=== PATIENT | female | born 1955 | race Caucasian/White ===

== ENCOUNTER → 2017-10-01 14:01 | Outpatient (CLI) | payer BC, SELFPAY | PROVIDERS: Family Provider Family Medicine; PCP Family Medicine; Visit Provider Family Medicine | DX: I49.3 Ventricular premature depolarization (principal); R00.2 Palpitations | CPT/HCPCS: 93225; 93226 ==

== ENCOUNTER → 2020-06-02 15:35 | Outpatient (CLI) | payer MEDICARE, SELFPAY ==
[2019-06-05 15:03] VITALS: BMI 39.7
--- NOTE | 2020-06-02 15:42 | BI_ITS ---
MAMMOGRAPHY - BILATERAL SCREENING REASON FOR EXAM: Female, 64 years old. Routine annual screening examination. PERTINENT HISTORY: NO FAM HX GAINED 20+# NO SX LTD ROM ON NECK-RAISINF CHIN OUT OF PICTURE AND LTD SHOULDER MVMT TECHNIQUE: Digital bilateral breast maggie (3D mammographic acquisition) in the CC and MLO projections. 2-D mediolateral oblique (MLO) and craniocaudad (CC) views of both breasts were obtained. CAD: Full Field Digital Mammography with Computer Added Detection was performed. COMPARISON: 05/03/2015. FINDINGS: Breast Composition: The breasts are almost entirely fatty. There are no dominant masses or suspicious calcifications. No other significant abnormalities are identified. BI/SCREEN MAMM (CAD) W/MAGGIE BILAT IMPRESSION: Stable bilateral screening mammogram. Yearly follow-up mammogram recommended. (A) ASSESSMENT CATEGORY: BIRADS Category 2: Benign. A letter regarding these results will be sent to the patient by the facility within 30 days. Approximately 10% of breast cancers are not detected by mammography. A normal mammogram should not delay biopsy of a clinically suspicious abnormality. [id number] Electronically Signed: Babar Park, at 16:24 EST Tel , Service support ,
== END ==
PROVIDERS: PCP Family Medicine; Referring Provider Family Medicine; Visit Provider Family Medicine
DX: Z12.31 Encounter for screening mammogram for malignant neoplasm of breast (principal)
CPT/HCPCS: 77063; 77067

== ENCOUNTER → 2021-03-17 08:44 | Outpatient (CLI) | payer MEDICARE, OTHER, SELFPAY ==
[2021-03-17 10:10] LABS: AST(SGOT) 18 U/L (15-37); Alanine Aminotransfer ALT/SGPT 27 U/L (13-56); Albumin, Serum 3.4 g/dL (3.2-5.0); Alkaline Phosphatase 89 U/L (45-117); Anion Gap 5 (5-15); BUN 23 mg/dL (7-18); BUN/Creat Ratio 32.1 RATIO (10-20); Bilirubin, Direct 0.06 mg/dL (0.00-0.30); Calcium,Total 9.2 mg/dL (8.5-10.1); Chloride 108 mmol/L (98-107); Cholesterol 233 mg/dL (200); Creatinine, Serum 0.72 mg/dL (0.55-1.02); EST Glomerular Filtration Rate 87 mL/min (>60); Est Glom Filt Rate - Afr Amer 105 mL/min (>60); Globulin 4.3 g/dL (2.2-4.2); Glucose 108 mg/dL (74-106); High Density Lipoprotein 37 mg/dL; Magnesium 2.3 mg/dL (1.6-2.6); Potassium 4.6 mmol/L (3.5-5.1); Protein, Total 7.7 g/dL (6.4-8.2); Sodium Level 139 mmol/L (136-145); Thyroid Stim Hormone (TSH) 1.08 uIU/mL (0.358-3.74); Triglycerides 353 mg/dL; Very Low Density Lipoprotein 71 mg/dL (5-40)
== END ==
PROVIDERS: PCP Family Medicine; Referring Provider Nurse Practitioner Gerontology; Visit Provider Nurse Practitioner Gerontology
DX: I10 Essential (primary) hypertension (principal); E78.2 Mixed hyperlipidemia; R00.2 Palpitations
CPT/HCPCS: 36415; 80048; 80061; 80076; 83735; 84443

== ENCOUNTER → 2022-03-10 | Outpatient (CLI) | payer MEDICARE, OTHER, SELFPAY ==
[2022-03-10 12:16] LABS: Absolute Neutrophil Count 4.3 X10^3/uL (2.0-7.7); Basophil# 0.04 X10^3/uL; Basophil% 0.6 % (0-1); Eosinophil# 0.16 X10^3/uL; Eosinophils% 2.5 % (0-5); Erythrocyte Sedimentation Rate 19 mm/hr (0-30); Hematocrit 42.5 % (37-47); Hemoglobin 13.9 g/dL (12.0-15.0); Mean Corp Hgb Conc 32.7 g/dL (32-36); Mean Corpuscular Volume 94.7 fL (81-99); Mean Platelet Vol. 9.1 fl (6.2-12.0); Monocyte# 0.67 X10^3/uL; Monocyte% 10.3 % (0-10); NRBC Flagged by Analyzer 0 % (0-5); Neutrophil # 4.32 X10^3/uL (2.7-7.7); Neutrophil % 66.4 % (47-70); Platelet Count 315 K/mm3 (150-450); RBC Distribution Width CV 13.2 % (11.6-14.6); RBC Distribution Width SD 46.3 fl (35.1-43.9); Red Blood Count 4.49 M/mm3 (4.2-5.4); White Blood Count 6.5 K/mm3 (4.4-11.0)
[2022-03-10 12:34] LABS: ALB/GLOB Ratio 0.8 RATIO (0.9-2.4); AST(SGOT) 26 U/L (15-37); Alanine Aminotransfer ALT/SGPT 38 U/L (13-56); Albumin, Serum 3.5 g/dL (3.2-5.0); Alkaline Phosphatase 105 U/L (45-117); Anion Gap 7 (5-15); BUN 26 mg/dL (7-18); BUN/Creat Ratio 26.1 RATIO (10-20); Calcium,Total 9.5 mg/dL (8.5-10.1); Chloride 108 mmol/L (98-107); EST Glomerular Filtration Rate 59 mL/min (>60); Est Glom Filt Rate - Afr Amer 71 mL/min (>60); Globulin 4.5 g/dL (2.2-4.2); Glucose 94 mg/dL (74-106); Potassium 4.5 mmol/L (3.5-5.1); Sodium Level 140 mmol/L (136-145)
[2022-03-10 13:14] LABS: Hepatitis B Surface Antibody Non-Reactive; Hepatitis B Surface Antigen Non-Reactive (Nonreactive); Hepatitis C Antibody Non-Reactive (Nonreactive)
[2022-03-12 11:26] LABS: ANTINUCLEAR ANTIBODIES DIRECT Negative (Negative)
[2022-03-14 10:47] LABS: CCP IgG Antibodies > 250 units (0-19)
== END | disposition home or self-care (01) ==
LOC: MTLAB 09:58
PROVIDERS: PCP Family Medicine; Referring Provider Internal Medicine Rheumatology; Visit Provider Internal Medicine Rheumatology
DX: M06.4 Inflammatory polyarthropathy (principal); I10 Essential (primary) hypertension; R51.9 Headache, unspecified; R00.2 Palpitations; I47.29 Other ventricular tachycardia; E78.5 Hyperlipidemia, unspecified
CPT/HCPCS: 36415; 80053; 85025; 85652; 86038; 86140; 86200; 86431; 86706; 86803; 87340

== ENCOUNTER → 2022-04-25 | Outpatient (CLI) | payer MEDICARE, OTHER, SELFPAY ==
[2022-04-25 15:27] LABS: Absolute Lymphocyte Count 1.13 X10^3/uL (0.83-4.51); Basophil# 0.03 X10^3/uL; Basophil% 0.3 % (0-1); Eosinophil# 0.03 X10^3/uL; Eosinophils% 0.3 % (0-5); Hematocrit 42.6 % (37-47); Hemoglobin 13.9 g/dL (12.0-15.0); Lymphocyte # 1.13 X10^3/ul (0.83-4.51); Mean Corp Hgb Conc 32.6 g/dL (32-36); Mean Corpuscular Hgb 30.2 pg (27.0-32.0); Mean Corpuscular Volume 92.4 fL (81-99); Mean Platelet Vol. 8.7 fl (6.2-12.0); Monocyte# 0.46 X10^3/uL; Monocyte% 5.3 % (0-10); NRBC Flagged by Analyzer 0 % (0-5); Neutrophil # 6.99 X10^3/uL (2.7-7.7); Neutrophil % 80.6 % (47-70); Platelet Count 350 K/mm3 (150-450); RBC Distribution Width CV 14.1 % (11.6-14.6); RBC Distribution Width SD 47.5 fl (35.1-43.9); Red Blood Count 4.61 M/mm3 (4.2-5.4); White Blood Count 8.7 K/mm3 (4.4-11.0)
[2022-04-25 15:50] LABS: ALB/GLOB Ratio 0.9 RATIO (0.9-2.4); AST(SGOT) 13 U/L (15-37); Alanine Aminotransfer ALT/SGPT 43 U/L (13-56); Albumin, Serum 3.6 g/dL (3.2-5.0); Alkaline Phosphatase 69 U/L (45-117); Anion Gap 9 (5-15); BUN 28 mg/dL (7-18); BUN/Creat Ratio 34.7 RATIO (10-20); Calcium,Total 9.9 mg/dL (8.5-10.1); Chloride 106 mmol/L (98-107); Creatinine, Serum 0.81 mg/dL (0.55-1.02); EST Glomerular Filtration Rate 75 mL/min (>60); Est Glom Filt Rate - Afr Amer 91 mL/min (>60); Globulin 4.1 g/dL (2.2-4.2); Glucose 118 mg/dL (74-106); Potassium 4.8 mmol/L (3.5-5.1); Protein, Total 7.7 g/dL (6.4-8.2); Sodium Level 138 mmol/L (136-145)
== END | disposition home or self-care (01) ==
LOC: MTLAB 13:25
PROVIDERS: PCP Family Medicine; Referring Provider Internal Medicine Rheumatology; Visit Provider Internal Medicine Rheumatology
DX: M06.4 Inflammatory polyarthropathy (principal); Z79.899 Other long term (current) drug therapy
CPT/HCPCS: 36415; 80053; 85025

== ENCOUNTER → 2022-05-15 | Outpatient (CLI) | payer MEDICARE, OTHER, SELFPAY ==
--- NOTE | 2022-05-15 13:21 | BI_ITS ---
MAMMOGRAPHY - BILATERAL SCREENING REASON FOR EXAM: Female, 66 years old. Routine annual screening examination. PERTINENT HISTORY: Non-contributory. TECHNIQUE: Digital bilateral breast maggie (3D mammographic acquisition) in the CC and MLO projections. 2-D mediolateral oblique (MLO) and craniocaudad (CC) views of both breasts were obtained. CAD: Full Field Digital Mammography with Computer Added Detection was performed. COMPARISON: Comparison is made with prior study dated 06/02/2020 and 05/03/2015. FINDINGS: Breast Composition: The breasts are almost entirely fatty. There are no dominant masses or suspicious calcifications. No other significant abnormalities are identified. There has been no significant change since the prior study. BI/SCRN MAMM (CAD)W/MAGGIE BILAT IMPRESSION: Stable bilateral screening mammogram. Yearly follow-up mammogram recommended. (A) ASSESSMENT CATEGORY: BIRADS Category 1: Negative. A letter regarding these results will be sent to the patient by the facility within 30 days. Approximately 10% of breast cancers are not detected by mammography. A normal mammogram should not delay biopsy of a clinically suspicious abnormality. [id number] Electronically Signed: Bismark Marquez MD at 14:22 EST ,
== END | disposition home or self-care (01) ==
LOC: OPBI 13:20
PROVIDERS: PCP Family Medicine; Referring Provider Nurse Practitioner Family; Visit Provider Nurse Practitioner Family
DX: Z12.31 Encounter for screening mammogram for malignant neoplasm of breast (principal)
CPT/HCPCS: 77063; 77067

== ENCOUNTER → 2022-06-27 | Outpatient (CLI) | payer MEDICARE, OTHER, SELFPAY ==
[2022-06-27 15:28] LABS: Absolute Neutrophil Count 6.1 X10^3/uL (2.0-7.7); Basophil# 0.05 X10^3/uL; Basophil% 0.6 % (0-1); Eosinophil# 0.16 X10^3/uL; Eosinophils% 1.9 % (0-5); Hematocrit 42.6 % (37-47); Hemoglobin 13.4 g/dL (12.0-15.0); Lymphocyte % 16.2 % (19-41); Mean Corp Hgb Conc 31.5 g/dL (32-36); Mean Corpuscular Hgb 30.7 pg (27.0-32.0); Mean Corpuscular Volume 97.5 fL (81-99); Mean Platelet Vol. 8.9 fl (6.2-12.0); Monocyte# 0.74 X10^3/uL; Monocyte% 8.6 % (0-10); NRBC Flagged by Analyzer 0 % (0-5); Neutrophil # 6.12 X10^3/uL (2.7-7.7); Platelet Count 364 K/mm3 (150-450); RBC Distribution Width SD 57.4 fl (35.1-43.9); Red Blood Count 4.37 M/mm3 (4.2-5.4); White Blood Count 8.6 K/mm3 (4.4-11.0)
[2022-06-27 15:40] LABS: ALB/GLOB Ratio 0.9 RATIO (0.9-2.4); AST(SGOT) 22 U/L (15-37); Alanine Aminotransfer ALT/SGPT 38 U/L (13-56); Albumin, Serum 3.8 g/dL (3.2-5.0); Alkaline Phosphatase 76 U/L (45-117); Anion Gap 7 (5-15); BUN 25 mg/dL (7-18); Calcium,Total 9.5 mg/dL (8.5-10.1); Chloride 106 mmol/L (98-107); Creatinine, Serum 0.76 mg/dL (0.55-1.02); EST Glomerular Filtration Rate 81 mL/min (>60); Est Glom Filt Rate - Afr Amer 98 mL/min (>60); Globulin 4.1 g/dL (2.2-4.2); Glucose 103 mg/dL (74-106); Potassium 4.5 mmol/L (3.5-5.1); Protein, Total 7.9 g/dL (6.4-8.2); Sodium Level 139 mmol/L (136-145)
== END | disposition home or self-care (01) ==
LOC: MTLAB 13:33
PROVIDERS: PCP Family Medicine; Referring Provider Internal Medicine Rheumatology; Visit Provider Internal Medicine Rheumatology
DX: M05.79 Rheumatoid arthritis with rheumatoid factor of multiple sites without organ or systems involvement (principal); Z79.899 Other long term (current) drug therapy
CPT/HCPCS: 36415; 80053; 85025

== ENCOUNTER → 2022-08-17 | Outpatient (CLI) | payer MEDICARE, OTHER, SELFPAY ==
[2022-08-17 12:20] LABS: Absolute Lymphocyte Count 1.44 X10^3/uL (0.83-4.51); Absolute Neutrophil Count 2.9 X10^3/uL (2.0-7.7); Basophil# 0.04 X10^3/uL; Basophil% 0.8 % (0-1); Eosinophil# 0.12 X10^3/uL; Eosinophils% 2.3 % (0-5); Hematocrit 40.2 % (37-47); Hemoglobin 12.9 g/dL (12.0-15.0); Lymphocyte # 1.44 X10^3/ul (0.83-4.51); Lymphocyte % 27.5 % (19-41); Mean Corp Hgb Conc 32.1 g/dL (32-36); Mean Corpuscular Hgb 32.5 pg (27.0-32.0); Mean Corpuscular Volume 101.3 fL (81-99); Monocyte# 0.71 X10^3/uL; Monocyte% 13.6 % (0-10); NRBC Flagged by Analyzer 0 % (0-5); Neutrophil % 55.4 % (47-70); Platelet Count 295 K/mm3 (150-450); RBC Distribution Width CV 14.3 % (11.6-14.6); RBC Distribution Width SD 52.9 fl (35.1-43.9); Red Blood Count 3.97 M/mm3 (4.2-5.4); White Blood Count 5.2 K/mm3 (4.4-11.0)
[2022-08-17 12:48] LABS: ALB/GLOB Ratio 0.8 RATIO (0.9-2.4); AST(SGOT) 20 U/L (15-37); Alanine Aminotransfer ALT/SGPT 37 U/L (13-56); Albumin, Serum 3.4 g/dL (3.2-5.0); Alkaline Phosphatase 70 U/L (45-117); Anion Gap 10 (5-15); BUN 21 mg/dL (7-18); BUN/Creat Ratio 23.4 RATIO (10-20); Calcium,Total 9.5 mg/dL (8.5-10.1); Chloride 107 mmol/L (98-107); EST Glomerular Filtration Rate 67 mL/min (>60); Est Glom Filt Rate - Afr Amer 80 mL/min (>60); Glucose 93 mg/dL (74-106); Potassium 3.9 mmol/L (3.5-5.1); Protein, Total 7.4 g/dL (6.4-8.2); Sodium Level 141 mmol/L (136-145)
== END | disposition home or self-care (01) ==
LOC: MTLAB 09:33
PROVIDERS: PCP Family Medicine; Referring Provider Internal Medicine Rheumatology; Visit Provider Internal Medicine Rheumatology
DX: M05.79 Rheumatoid arthritis with rheumatoid factor of multiple sites without organ or systems involvement (principal); Z79.899 Other long term (current) drug therapy
CPT/HCPCS: 36415; 80053; 85025

== ENCOUNTER → 2022-10-19 | Outpatient (CLI) | payer MEDICARE, OTHER, SELFPAY ==
[2022-10-19 12:46] LABS: Absolute Lymphocyte Count 1.09 X10^3/uL (0.83-4.51); Absolute Neutrophil Count 3.2 X10^3/uL (2.0-7.7); Basophil# 0.02 X10^3/uL; Basophil% 0.4 % (0-1); Eosinophil# 0.15 X10^3/uL; Eosinophils% 2.9 % (0-5); Hematocrit 40.9 % (37-47); Lymphocyte # 1.09 X10^3/ul (0.83-4.51); Lymphocyte % 20.9 % (19-41); Mean Corp Hgb Conc 31.8 g/dL (32-36); Mean Corpuscular Hgb 31.6 pg (27.0-32.0); Mean Corpuscular Volume 99.5 fL (81-99); Mean Platelet Vol. 9.4 fl (6.2-12.0); Monocyte% 13.4 % (0-10); NRBC Flagged by Analyzer 0 % (0-5); Neutrophil # 3.24 X10^3/uL (2.7-7.7); Platelet Count 297 K/mm3 (150-450); RBC Distribution Width CV 14.1 % (11.6-14.6); RBC Distribution Width SD 50.9 fl (35.1-43.9); Red Blood Count 4.11 M/mm3 (4.2-5.4); White Blood Count 5.2 K/mm3 (4.4-11.0)
[2022-10-19 12:49] LABS: ALB/GLOB Ratio 0.8 RATIO (0.9-2.4); AST(SGOT) 16 U/L (15-37); Alanine Aminotransfer ALT/SGPT 35 U/L (13-56); Albumin, Serum 3.2 g/dL (3.2-5.0); Alkaline Phosphatase 76 U/L (45-117); Anion Gap 8 (5-15); BUN 24 mg/dL (7-18); BUN/Creat Ratio 33.2 RATIO (10-20); Bilirubin, Direct < 0.05 mg/dL (0.00-0.30); Calcium,Total 9.3 mg/dL (8.5-10.1); Chloride 107 mmol/L (98-107); Cholesterol 235 mg/dL (200); Creatinine, Serum 0.72 mg/dL (0.55-1.02); EST Glomerular Filtration Rate 85 mL/min (>60); Est Glom Filt Rate - Afr Amer 103 mL/min (>60); Globulin 4.1 g/dL (2.2-4.2); Glucose 130 mg/dL (74-106); High Density Lipoprotein 37 mg/dL; Potassium 4.1 mmol/L (3.5-5.1); Protein, Total 7.3 g/dL (6.4-8.2); Sodium Level 139 mmol/L (136-145); Triglycerides 543 mg/dL
== END | disposition home or self-care (01) ==
LOC: MTLAB 10:17
PROVIDERS: PCP Family Medicine; Referring Provider Physician Assistant Medical; Visit Provider Physician Assistant Medical
DX: M05.79 Rheumatoid arthritis with rheumatoid factor of multiple sites without organ or systems involvement (principal); I10 Essential (primary) hypertension; E78.2 Mixed hyperlipidemia; Z79.899 Other long term (current) drug therapy
CPT/HCPCS: 36415; 80053; 80061; 82248; 85025

== ENCOUNTER → 2022-12-14 | Outpatient (CLI) | payer MEDICARE, OTHER, SELFPAY ==
[2022-12-14 15:24] LABS: Absolute Lymphocyte Count 2.04 X10^3/uL (0.83-4.51); Absolute Neutrophil Count 4.5 X10^3/uL (2.0-7.7); Basophil# 0.05 X10^3/uL; Basophil% 0.6 % (0-1); Eosinophil# 0.18 X10^3/uL; Eosinophils% 2.3 % (0-5); Hematocrit 39.4 % (37-47); Hemoglobin 12.4 g/dL (12.0-15.0); Lymphocyte # 2.04 X10^3/ul (0.83-4.51); Lymphocyte % 26.3 % (19-41); Mean Corp Hgb Conc 31.5 g/dL (32-36); Mean Corpuscular Hgb 31.4 pg (27.0-32.0); Mean Corpuscular Volume 99.7 fL (81-99); Mean Platelet Vol. 9.2 fl (6.2-12.0); Monocyte# 0.92 X10^3/uL; Monocyte% 11.9 % (0-10); NRBC Flagged by Analyzer 0 % (0-5); Neutrophil % 58.1 % (47-70); Platelet Count 376 K/mm3 (150-450); RBC Distribution Width SD 55.8 fl (35.1-43.9); Red Blood Count 3.95 M/mm3 (4.2-5.4); White Blood Count 7.8 K/mm3 (4.4-11.0)
[2022-12-14 15:58] LABS: ALB/GLOB Ratio 0.8 RATIO (0.9-2.4); AST(SGOT) 19 U/L (15-37); Alanine Aminotransfer ALT/SGPT 35 U/L (13-56); Albumin, Serum 3.3 g/dL (3.2-5.0); Alkaline Phosphatase 89 U/L (45-117); Anion Gap 8 (5-15); BUN 29 mg/dL (7-18); BUN/Creat Ratio 32.4 RATIO (10-20); Calcium,Total 9.7 mg/dL (8.5-10.1); Chloride 107 mmol/L (98-107); Creatinine, Serum 0.89 mg/dL (0.55-1.02); EST Glomerular Filtration Rate 67 mL/min (>60); Est Glom Filt Rate - Afr Amer 81 mL/min (>60); Globulin 4.2 g/dL (2.2-4.2); Glucose 84 mg/dL (74-106); Potassium 4.3 mmol/L (3.5-5.1); Protein, Total 7.5 g/dL (6.4-8.2); Sodium Level 140 mmol/L (136-145)
== END | disposition home or self-care (01) ==
LOC: LAB 13:45
PROVIDERS: PCP Family Medicine; Visit Provider Internal Medicine Rheumatology
DX: M05.79 Rheumatoid arthritis with rheumatoid factor of multiple sites without organ or systems involvement (principal); Z79.899 Other long term (current) drug therapy
CPT/HCPCS: 36415; 80053; 85025

== ENCOUNTER → 2023-03-16 | Outpatient (CLI) | payer MEDICARE, OTHER, SELFPAY ==
[2023-03-16 12:18] LABS: Absolute Lymphocyte Count 1.39 X10^3/uL (0.83-4.51); Absolute Neutrophil Count 4.4 X10^3/uL (2.0-7.7); Basophil# 0.03 X10^3/uL; Basophil% 0.4 % (0-1); Eosinophil# 0.18 X10^3/uL; Eosinophils% 2.6 % (0-5); Hematocrit 40.7 % (37-47); Hemoglobin 12.6 g/dL (12.0-15.0); Lymphocyte # 1.39 X10^3/ul (0.83-4.51); Lymphocyte % 20.4 % (19-41); Mean Corpuscular Hgb 31.4 pg (27.0-32.0); Mean Corpuscular Volume 101.5 fL (81-99); Mean Platelet Vol. 9.4 fl (6.2-12.0); Monocyte# 0.78 X10^3/uL; Monocyte% 11.4 % (0-10); NRBC Flagged by Analyzer 0 % (0-5); Neutrophil # 4.42 X10^3/uL (2.7-7.7); Neutrophil % 64.9 % (47-70); Platelet Count 253 K/mm3 (150-450); RBC Distribution Width CV 14.8 % (11.6-14.6); RBC Distribution Width SD 55.4 fl (35.1-43.9); Red Blood Count 4.01 M/mm3 (4.2-5.4); White Blood Count 6.8 K/mm3 (4.4-11.0)
[2023-03-16 12:45] LABS: ALB/GLOB Ratio 0.9 RATIO (0.9-2.4); AST(SGOT) 14 U/L (15-37); Alanine Aminotransfer ALT/SGPT 43 U/L (13-56); Albumin, Serum 3.3 g/dL (3.2-5.0); Alkaline Phosphatase 71 U/L (45-117); Anion Gap 9 (5-15); BUN 18 mg/dL (7-18); BUN/Creat Ratio 26.3 RATIO (10-20); Calcium,Total 9.1 mg/dL (8.5-10.1); Chloride 109 mmol/L (98-107); Creatinine, Serum 0.68 mg/dL (0.55-1.02); EST Glomerular Filtration Rate 91 mL/min (>60); Est Glom Filt Rate - Afr Amer 110 mL/min (>60); Globulin 3.8 g/dL (2.2-4.2); Glucose 113 mg/dL (74-106); Potassium 4.2 mmol/L (3.5-5.1); Protein, Total 7.1 g/dL (6.4-8.2); Sodium Level 142 mmol/L (136-145)
== END | disposition home or self-care (01) ==
LOC: MTLAB 09:49
PROVIDERS: PCP Family Medicine; Referring Provider Internal Medicine Rheumatology; Visit Provider Internal Medicine Rheumatology
DX: M05.742 Rheumatoid arthritis with rheumatoid factor of left hand without organ or systems involvement (principal); I10 Essential (primary) hypertension; R51.9 Headache, unspecified; Z79.899 Other long term (current) drug therapy
CPT/HCPCS: 36415; 80053; 85025

== ENCOUNTER → 2023-05-17 | Outpatient (CLI) | payer MEDICARE, OTHER, SELFPAY ==
--- NOTE | 2023-05-17 13:29 | BI_ITS ---
MAMMOGRAPHY - BILATERAL SCREENING REASON FOR EXAM: Female, 67 years old. Routine annual screening examination. PERTINENT HISTORY: Non-contributory. TECHNIQUE: Digital bilateral breast maggie (3D mammographic acquisition) in the CC and MLO projections. 2-D mediolateral oblique (MLO) and craniocaudad (CC) views of both breasts were obtained. CAD: Full Field Digital Mammography with Computer Added Detection was performed. COMPARISON: Comparison is made with prior study dated May 15, 2022 and June 02, 2020. FINDINGS: Breast Composition: The breasts are almost entirely fatty. There are no dominant masses or suspicious calcifications. Stable scattered calcifications in right breast. No other significant abnormalities are identified. There has been no significant change since the prior study. BI/SCRN MAMM (CAD)W/MAGGIE BILAT IMPRESSION: Stable bilateral screening mammogram. Yearly follow-up mammogram recommended. (A) ASSESSMENT CATEGORY: BIRADS Category 2: Benign. A letter regarding these results will be sent to the patient by the facility within 30 days. Approximately 10% of breast cancers are not detected by mammography. A normal mammogram should not delay biopsy of a clinically suspicious abnormality. [id number] Electronically Signed: Bismark Marquez MD at 14:30 EST ,
== END | disposition home or self-care (01) ==
LOC: OPBI 13:28
PROVIDERS: PCP Family Medicine; Referring Provider Nurse Practitioner Family; Visit Provider Nurse Practitioner Family
DX: Z12.31 Encounter for screening mammogram for malignant neoplasm of breast (principal)
CPT/HCPCS: 77063; 77067

== ENCOUNTER → 2023-06-11 | Outpatient (CLI) | payer MEDICARE, OTHER, SELFPAY ==
--- OUTSIDE RECORDS SUMMARY | 2023-06-11 10:36 | XMS RPT_ITS | CCD ---
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 Name Role Phone Jarvis Egan MD Primary Care Provider [phone] JARVIS EGAN Primary Care Unavailable FATMATA LARA Referring Unavailable MARIO GARCIA Attending Unavailable JARVIS EGAN Primary Care Unavailable FATMATA LARA Attending Unavailable JARVIS EGAN Primary Care Unavailable FATMATA LARA Attending Unavailable JARVIS EGAN Primary Care Unavailable FATMATA LARA Referring Unavailable JARVIS EGAN Primary Care Unavailable JARVIS EGAN Primary Care Unavailable BRAYAN, MARIO P Referring Unavailable BRAYAN MARIO P Attending Unavailable JARVIS EGAN Primary Care Unavailable BRAYAN, MARIO P Referring Unavailable BRAYAN, MARIO P Attending Unavailable Allergies Allergy Classification Reported Allergen(s) Allergy Type Date of Onset Reaction(s) Facility (14 sources) environmental [Other] Propensity to adverse reactions 9 [facility] (9 sources) Hydroxychloroquin e; Translations: [HYDROXYCHLOROQUI NE] Drug Allergy 3 Rash [facility] (1 source) OTHER; Translations: [OTHER] Propensity to adverse reactions (disorder) 9 [facility] Repository Medications Current Medications Medication Drug Class(es) Dates Sig (Normalized) Sig (Original) phentermine hydrochloride 37.5 mg oral tablet (4 sources) Sympathomimetic Amine Anorectic Start: 01-23-2022 End: 02-22-2022 take 1 tablet by mouth once daily Phentermine HCl 37.5 mg tablet Indications: Obesity, Class III, BMI 40-49.9 (morbid obesity) (HCC) Take 1 tablet by mouth once daily for 30 days. 30 tablet 0 01/23/2022 02/22/2022 Active Completed/Discontinued Medications Medication Drug Class(es) Dates Sig (Normalized) Sig (Original) acetaminophen 500 mg oral tablet (8 sources) take 1 tablet by mouth every eight hours as needed acetaminophen (TYLENOL) 500 mg tablet Take 500 mg by mouth every 8 hours as needed. 2 tabs taken 0 Active Problems Active Problems Problem Classification Problem Date Documented Da te Episodic/Chronic Allergic reactions (1 source) Dermatitis, unspecified; Translations: [Dermatitis] Onset: 3 Episodic Disorders of lipid metabolism (16 sources) Hyperlipidemia; Translations: [Hyperlipidemia, unspecified] Onset: 5 04-10-2015 Chronic Esophageal disorders (14 sources) Gastroesophageal reflux disease; Translations: [Gastro-esophageal reflux disease without esophagitis] 05-02-2005 Chronic Essential hypertension (16 sources) Essential hypertension; Translations: [Essential (primary) hypertension] Onset: 0 Chronic Headache; including migraine (14 sources) Migraine; Translations: [Other forms of migraine] 05-02-2005 Chronic Immunizations and screening for infectious disease (1 source) Needs influenza immunization; Translations: [Encounter for immunization] Episodic Osteoarthritis (1 source) Bilateral arthritis of finger of hand; Translations: [Primary osteoarthritis, right hand] Chronic Other gastrointestinal disorders (3 sources) Stool DNA-based colorectal cancer screening positive; Translations: [Other fecal abnormalities] Onset: 3 04-23-2023 Episodic Other gastrointestinal disorders (1 source) Other fecal abnormalities; Translations: [Positive colorectal cancer screening using Cologuard test] Onset: 3 Episodic Other non-traumatic joint disorders (1 source) Joint swelling; Translations: [Effusion, unspecified joint] Episodic Other nutritional; endocrine; and metabolic disorders (17 sources) Body mass index 40+ - severely obese; Translations: [Morbid (severe) obesity due to excess calories] Onset: 8 Chronic Other nutritional; endocrine; and metabolic disorders (1 source) Morbid (severe) obesity due to excess calories; Translations: [Class 3 severe obesity with body mass index (BMI) of 40.0 to 44.9 in adult, unspecified obesity type, unspecified whether serious comorbidity present (HCC)] Onset: 3 Chronic Other nutritional; endocrine; and metabolic disorders (1 source) Body mass index (BMI) 40.0-44.9, adult; Translations: [Class 3 severe obesity with body mass index (BMI) of 40.0 to 44.9 in adult, unspecified obesity type, unspecified whether serious comorbidity present (HCC)] Onset: 3 Chronic Other screening for suspected conditions (not mental disorders or infectious disease) (20 sources) Patient encounter status; Translations: [Encounter for screening for malignant neoplasm of colon] Onset: 7 01-21-2007 Episodic Other skin disorders (1 source) Eruption; Translations: [Rash and other nonspecific skin eruption] 03-13-2023 Episodic Other upper respiratory disease (14 sources) Allergic rhinitis; Translations: [Allergic rhinitis, unspecified] 05-02-2005 Chronic Other upper respiratory infections (1 source) Chronic sinusitis; Translations: [Chronic sinusitis, unspecified] Chronic Rheumatoid arthritis and related disease (12 sources) Rheumatoid arthritis; Translations: [Rheumatoid arthritis, unspecified] Onset: 2 Chronic Past or Other Problems Problem Classification Problem Date Documented Da te Episodic/Chronic Other connective tissue disease (14 sources) Soft tissue lesion of shoulder region; Translations: [Bursopathy, unspecified] Onset: 12-31-2006 12-31-2006 Episodic Other non-traumatic joint disorders (14 sources) Pain in lower limb; Translations: [Pain in unspecified knee] Onset: 11-11-2013 11-11-2013 Episodic Spondylosis; intervertebral disc disorders; other back problems (14 sources) Brachial neuritis; Translations: [Radiculopathy, cervical region] Onset: 04-10-2008 04-10-2008 Episodic Results Test Name Value Interpretation Reference Range Facil ity Vital Signs Date Time Vital Sign Value Performing Clinician Faci lity 04-02-2023 12:31-0400 Body weight 109.77 kg Fatmata Lara APRN.CNP Work Phone: [facility] 04-02-2023 12:31-0400 Diastolic blood pressure 80 mm[Hg] Fatmata Lara APRN.CNP Work Phone: [facility] 04-02-2023 12:31-0400 Heart rate 77 /min Fatmata Lara APRN.CNP Work Phone: [facility] 04-02-2023 12:31-0400 Respiratory rate 16 /min Fatmata Tannhof RADIO NEWS WRITER.PROBE OPERATOR Work Phone: [facility] 04-02-2023 12:31-0400 SaO2% (BldA) [Mass fraction] 97 % Fatmata Tannhof RADIO NEWS WRITER.PROBE OPERATOR Work Phone: [facility] 04-02-2023 12:31-0400 Systolic blood pressure 118 mm[Hg] Fatmata Tannhof RADIO NEWS WRITER.PROBE OPERATOR Work Phone: [facility] 04-10-2022 13:03-0500 Body weight 106.59 kg Fatmata Tannhof RADIO NEWS WRITER.PROBE OPERATOR Work Phone: [facility] 04-10-2022 13:03-0500 Diastolic blood pressure 70 mm[Hg] Fatmata Tannhof RADIO NEWS WRITER.PROBE OPERATOR Work Phone: [facility] 04-10-2022 13:03-0500 Heart rate 86 /min Fatmata Tannhof RADIO NEWS WRITER.PROBE OPERATOR Work Phone: [facility] 04-10-2022 13:03-0500 Respiratory rate 16 /min Fatmata Tannhof RADIO NEWS WRITER.PROBE OPERATOR Work Phone: [facility] 04-10-2022 13:03-0500 SaO2% (BldA) [Mass fraction] 98 % Fatmata Tannhof RADIO NEWS WRITER.PROBE OPERATOR Work Phone: [facility] 04-10-2022 13:03-0500 Systolic blood pressure 126 mm[Hg] Fatmata Tannhof RADIO NEWS WRITER.PROBE OPERATOR Work Phone: [facility] 01-23-2022 15:04-0400 Body weight 106.78 kg Jarvis Egan MD Work Phone: [facility] 01-23-2022 15:04-0400 Diastolic blood pressure 80 mm[Hg] Jarvis Egan MD Work Phone: [facility] 01-23-2022 15:04-0400 Heart rate 88 /min Jarvis Egan MD Work Phone: [facility] 01-23-2022 15:04-0400 Respiratory rate 20 /min Jarvis Egan MD Work Phone: [facility] 01-23-2022 15:04-0400 Systolic blood pressure 124 mm[Hg] Jarvis Egan MD Work Phone: [facility] 12-22-2021 11:23-0400 Body weight 108.41 kg Jarvis Egan MD Work Phone: [facility] 12-22-2021 11:23-0400 Diastolic blood pressure 74 mm[Hg] Jarvis Egan MD Work Phone: [facility] 12-22-2021 11:23-0400 Heart rate 82 /min Jarvis Egan MD Work Phone: [facility] 12-22-2021 11:23-0400 Respiratory rate 16 /min Jarvis Egan MD Work Phone: [facility] 12-22-2021 11:23-0400 Systolic blood pressure 116 mm[Hg] Jarvis Egan MD Work Phone: [facility] 11-23-2021 15:05-0400 Body height 160 cm Jarvis Egan MD Work Phone: [facility] 11-23-2021 15:05-0400 Body weight 113.13 kg Jarvis Egan MD Work Phone: [facility] 11-23-2021 15:05-0400 Diastolic blood pressure 80 mm[Hg] Jarvis gEan MD Work Phone: [facility] 11-23-2021 15:05-0400 Heart rate 82 /min Jarvis Egan MD Work Phone: [facility] 11-23-2021 15:05-0400 Respiratory rate 18 /min Jarvis Egan MD Work Phone: [facility] 11-23-2021 15:05-0400 Systolic blood pressure 130 mm[Hg] Jarvis Egan MD Work Phone: [facility] Encounters Encounter Date Encounter Type Care Provider Facility Start: 05-14-2023 End: 05-15-2023 ambulatory JARVIS EGAN Facility:[facility] Start: 05-11-2023 Telephone encounter Jarvis lawson MD Work Phone: [facility] [place] Procedures Date Procedure Procedure Detail Performing Clinician Start: 05-04-2023 INFLUENZA VACCINE, P RSV FREE, AGE 65+ YR, HIGH DOSE, QUADRIVALENT (FLUZONE HIGH-DOSE) Gabe Coker MD Work Phone: Start: 04-23-2023 Colonoscopy Immunizati on Andrew Work Phone: Start: 05-15-2022 Mammography Myrtle haro MA Start: 04-10-2022 INFLUENZA SEASONAL QUADRIVALENT HIGH DOSE AGE 65+ Fatmata Lara APRN.CNP Work Phone: Start: 12-22-2021 Adult depression screening assessment Jarvis Egan MD Work Phone: Start: 03-17-2021 Lipid 1996 panel - S flory or Plasma Myrtle Tate MA Start: 02-17-2019 Adult depression screening assessment Jarvis Egan MD Work Phone: Start: 05-03-2015 Mammography Jarvis johns MD Work Phone: Start: 09-01-2011 Colonoscopy Jarvis johns MD Work Phone: Plan of Treatment Date Care Activity Detail Author Start: 04-23-2033 Colonoscopy Colonoscopy [facility] Start: 04-23-2033 Colorectal Cancer Screening Colorectal Cancer Screening [facility] Start: 04-06-2026 Cologuard (FIT-DNA) Cologuard (FIT-DNA) [facility] Start: 03-17-2026 Lipid 1996 panel - Serum or Plasma Lipid Screening [facility] Start: 03-17-2026 LIPID SCREEN LIPID SCREEN [facility] Start: 04-17-2024 BP Controlled (<130/80) BP Controlled (<130/80) [facility] in Start: 04-02-2024 Annual PCP Team Chronic Disease Visit Annual PCP Team Chronic Disease Visit [facility] Start: 03-17-2024 DIABETES SCREEN DIABETES SCREEN [facility] Start: 03-17-2024 Diabetes Screening Diabetes Screening [facility] Start: 03-01-2024 Annual PCP Team Chronic Disease Visit Annual PCP Team Chronic Disease Visit [facility] Start: 03-01-2024 BP Controlled (<130/80) BP Controlled (<130/80) [facility] Start: 05-15-2023 Mammography [facility] Start: 04-10-2023 ANNUAL PCP TEAM CHRONIC DISEASE VISIT ANNUAL PCP TEAM CHRONIC DISEASE VISIT [facility] Start: 04-10-2023 BP CONTROLLED (<130/80) BP CONTROLLED (<130/80) [facility] Start: 04-07-2023 Colorectal Cancer Screening Colorectal Cancer Screening [facility] Start: 04-02-2023 End: 07-02-2023 Lipid 1996 panel - Serum or Plasma LIPID PANEL BASIC Lab Routine Mixed hyperlipidemia Expected: 04/02/2023, Expires: 07/02/[address] [facility] Work Phone: Immunizations Immunization Date Immunization Notes Care Provider Fa cility 05-04-2023 influenza (HD-IIV4) vaccine, age 65+ yr, high dose, quadrivalent, PF (FLUZONE HIGH-DOSE) Immunization [place] Work Phone: [facility] Work Phone: 04-10-2022 influenza, high-dose , quadrivalent vaccine (FLUZONE HIGH DOSE QUADRIVALENT) Fatmata Lara APRN.CNP Work Phone: [facility] 04-10-2022 influenza virus vaccine, unspecified formulation Myrtle Tate MA [facility] 06-01-2021 influenza, high-dose , quadrivalent vaccine (FLUZONE HIGH DOSE QUADRIVALENT) Jarvis Egan MD Work Phone: [facility] Work Phone: 03-27-2020 influenza, high-dose , quadrivalent vaccine (FLUZONE HIGH DOSE QUADRIVALENT) Jarvis Egan MD Work Phone: [facility] 07-05-2017 influenza, injectabl e, quadrivalent, contains preservative Jarvis Egan MD Work Phone: [facility] Work Phone: 03-04-2009 influenza virus vaccine, unspecified formulation Jarvis Egan MD Work Phone: [facility] Work Phone: 02-09-2009 tetanus toxoid, reduced diphtheria toxoid, and acellular pertussis vaccine, adsorbed Jarvis Egan MD Work Phone: [facility] Work Phone: Payers Date Payer Category Payer Medicare MEDICARE MEDICAR E A AND B [id number] 2019-Present [phone] [place] [address] Medicare [id number] 2019 Medicare MEDICARE MEDICAR E A AND B [id number] 2019-Present [phone] [place] [address] Medicare [id number] 2019 Medicare [id number] 2019 Medicare [id number] 2019 Private Health Insurance [employer] A ETNA MEDICARE SUPPLEMENT [id number] 2019-Present [phone] [address] [address] [place] [address] Indemnity [id number] 2019 Private Health Insurance [employer] A ETNA MEDICARE SUPPLEMENT [id number] 2019-Present [phone] [address] [address] [place] [address] Indemnity [id number] Social History Date Type Detail Facility Tobacco smoking status NHIS Never smoked tobacco [facility] Start: 11-23-2021 End: 05-01-2023 Alcohol intake Current non-drinker of alcohol (finding) [facility] Start: 1955 Sex Assigned At Not on file [facility] Start: 11-13-2021 End: 04-10-2022 Exposure to SARS-CoV-2 (event) Not sure [facility] Start: 03-01-2023 End: 04-02-2023 History of Social function [facility] Start: 03-01-2023 End: 04-02-2023 Tobacco use panel [facility] Adult Depression Scr eening Assessment 1 [facility] Clinical Notes 11-23-2021 to 05-11-2023 Telephone Encounter - Jason Keyes LPN - 05/11/2023 11:02 AM ESTTelephone Encounter - Valeria Baum RN - 05/04/2023 12:07 PM Myrtle Calabrese MA - 04/03/2023 8:15 AM EDT Note Date & Type Note Facility 05-11-2023 Miscellaneous Notes Pt calling wanting to find out how you tell I you have a hemorrhoid. States she has pain when sitting. Reviewed signs and symptoms with pt. States she is going to have someone look at the area this weekend. Also advised her to have that person check for any cracks/tears in the skin. Pt will all to schedule ov if they don't see anything and she is still having pain. Jason Keyes LPN documented in this encounter [facility] 05-04-2023 Miscellaneous Notes Mammogram orders faxed to [facility] at fax # [phone]. Called and let Pt know orders were faxed. Order filed. Jarad Caraballo APRN.BLAS Pt called and needs a mammogram order faxed to [facility]. The mammogram order needs to be with maggie bilateral. Once this has been faxed to [facility] please let pt know so she can book her apt. Kyung Staples LPN documented in this encounter [facility] 05-01-2023 Note HNO ID: [id number] Author: Mario Garcia MD Service: ? Author Type: Physician Type: Progress Notes Filed: 05/01/2023 1:25 PM Note Text: Subjective: Patient is status post a colonoscopy completed at [facility] on 04/23/2023. Patient was noted to have multiple polyps in her colon difficult and retrieving and removal of nearly all of them. All the pathology report came back benign so far. Patient is moving her bowels without difficulty. Objective:Blood pressure 128/80, pulse 88, temperature (!) 35.2 ?C (95.3 ?F), SpO2 95 %. Abdomen is soft and nontender no peritoneal signs. Assessment:Tubular adenoma of colon (primary encounter diagnosis) Plan: Given the size of these polyps and difficulty with removal needing clips I believe the best thing to do is repeat the colonoscopy in [address] [facility] 04-23-2023 Note HNO ID: [id number] Author: Sahara Gamez RN Service: ? Author Type: Registered Nurse Type: Nursing Progress Note Filed: 04/23/2023 10:09 AM Note Text: Abdomen soft non-distended. Will continue to monitor. Patient is very restless laying in the bed. [facility] 04-20-2023 Note HNO ID: [id number] Author: Mario Garcia MD Service: ? Author Type: Physician Type: Progress Notes Filed: 04/20/2023 4:12 PM Note Text: HISTORY AND PHYSICAL Kiarra Valerio 1955 REFERRING PHYSICIAN: Fatmata Lara APRN.C* CHIEF COMPLAINT: Consult (Positive cologuard) HPI: The patient is a 67 year old female referred for endoscopy. Kiarra notes no history of colon complaints. The patient notes no history of upper GI complaints. Kiarra has undergone prior endoscopy. 2011 The patient is being seen by me today at the request of Dr. Lara for my opinion and advice regarding Positive colorectal cancer screening using cologuard test (primary encounter diagnosis). PAST MEDICAL HISTORY Diagnosis Date Allergic rhinitis, cause unspecified Brachial neuritis or radiculitis GERD (gastroesophageal reflux disease) HTN (hypertension) Other and unspecified hyperlipidemia Other forms of migraine Pain in joint, lower leg Rheumatoid arthritis (HCC) PAST SURGICAL HISTORY Procedure Laterality Date DELIVERY ONLY 1992 , low cervical COLONOSCOPY FLX DX W/COLLJ SPEC WHEN PFRMD 09/01/11 repeat 10 yrs AVILES W/O FACETEC FORAMOT/DSC 06/05 VRT SGM CRV 2008 Laminectomy, cervical Migraines gone LIG/TRNSXJ FLP TUBE ABDL/VAG APPR UNI/BI Tubal ligation TONSILLECTOMY PRIMARY/SECONDARY Tonsillectomy Current Outpatient Medications Medication Sig FLUOROURACIL TOPICAL Apply 5 % to affected area two times a day. Treatment for 3 weeks atorvastatin (LIPITOR) 40 mg tablet Take 40 mg by mouth daily at bedtime. acetaminophen (TYLENOL) 500 mg tablet Take 500 mg by mouth every 8 hours as needed. 2 tabs taken multivit with minerals/lutein (MULTIVITAMIN 50 PLUS ORAL) Take by mouth. lisinopril (ZESTRIL, PRINIVIL) 20 mg tablet Take 1 tablet by mouth once daily. FOLIC ACID ORAL Take 1 mg by mouth. PREDNISONE ORAL Take 10 mg by mouth as needed. 3-5 days for flair ups methotrexate 2.5 mg tablet Take 2.5 mg by mouth one time only. 4 pills on Sun fluticasone (FLONASE) 50 mcg/actuation nasal spray Use 2 Sprays in each nostril once daily. Rinse mouth after use. metoprolol tartrate, short acting, (LOPRESSOR) 50 mg tablet Take 1 tablet by mouth twice daily. acetaminophen 325 mg-caffeine 40 mg-butalbital 50 mg (FIORICET) per tablet one every 4 hours as needed for migraine (Patient not taking: Reported on 03/01/2023) No current facility-administered medications for this visit. ALLERGIES: Environmental [Other] and Plaquenil [Hydroxychloroquine] PERSONAL HISTORY: Social History Tobacco Use Smoking status: Never Smokeless tobacco: Never Vaping Use Vaping Use: Never used Substance Use Topics Alcohol use: No Drug use: No FAMILY HISTORY: FAMILY HISTORY Problem Relation Age of Onset Hypertension Mother Allergies Mother Hypertension Father Diabetes Father Heart Father Coronary Artery Disease Father Heart Brother No Known Problems Brother Colon Cancer Paternal Grandmother REVIEW OF SYMPTOMS: The review of systems data was entered by the nurse and reviewed by wa Nursing Notes: Sue Anderson LPN 04/17/2023 11:12 AM Signed REVIEW OF SYSTEMS: General: The patient denies fatigue, denies weight loss, denies weight gain, denies feeling hot, and denies feelings of cold. Eyes: The patient denies glaucoma, denies eye injury/surgery, wears glasses or contacts. Ear/Nose/Throat: The patient denies allergies, denies hayfever, denies ear infections, and denies bloody noses. Cardiovascular: The patient denies chest pain, denies heart disease, NOTES high blood pressure,denies cardiac stent, denies prior heart attack, denies irregular heart beat, denies high cholesterol, denies poor circulation, denies heart failure, other cardiac issues, denies claudication, denies cold feet, denies peripheral arterial stent. Respiratory: The patient denies tuberculosis, denies pneumonia, denies frequent cough, denies pulmonary embolism, denies shortness of breath, and denies coughing up blood. Gastrointestinal: The patient denies difficulty swallowing, denies acid reflux, denies ulcers, denies vomiting, denies jaundice/hepatitis, denies gallbladder problems, denies black or tarry stools, denies hemorrhoids, denies bleeding from rectum, denies diverticulitis, denies constipation, denies diarrhea, denies loss of stool control, and denies hernias. Kidney/Bladder: The patient denies kidney stones, denies urine infections, and denies bloody urine. Skin: The patient denies a history of skin cancer, NOTES bleeding/changing moles, and NOTES a history of skin rash. Neurologic: The patient denies a history of epilepsy/convulsions, NOTES headaches, denies head/spinal injuries, and denies stroke/TIA. Psychiatric: The patient denies psychiatric medications, denies depression, and denies voices, denies substance abuse. Endocrine: The patient denies thyroid disorders, (more content not included)... [facility] 04-18-2023 Miscellaneous Notes Patient calls to request mammogram order be faxed to [facility]. Faxed to [phone] per request. Rhoda Hernandez, RN documented in this encounter [facility] 04-03-2023 Note Patient Outreach (TD TNAV) ARICKIARRA JACKSON ([id number]) 1955 F Date Time Provider Department 04/03/23 MYRTLE TATE During your visit today, we recorded the following information about you: Myrtle Tate MA 04/03/2023 1:56 PM Signed POPULATION HEALTH NAVIGATION OUTREACH Action/FYI LVM NO MYCHART MAMMOGRAM Patient Identified by Name and : NO Outreach Outcome/Action Unable to reach patient: Left message Did you use a PCP flex slot to schedule this appointment? N/A Reason for Outreach Care Gap or Scheduling/Wellness visits Payer: Payor: MEDICARE / Plan: MEDICARE A AND B / Product Type: Medicare / Care Gap Reviewed:: Breast Cancer screening Reminder: Reminder note to check Health Maintenance for items below Health Maintenance items due: Pneumococcal Vaccine: 65+(1 - PCV) Never done BP Controlled (<130/80) Never done Shingrix Vaccine(1 of 2) Never done RSV Vaccine(1 - 1-dose 60+ series) Never done DTaP,Tdap,Td Vaccine(2 - Td or Tdap) due on 02/09/2019 Bone Density Screening Never done Covid-19 Vaccine(3 - Pfizer risk series) due on 10/15/2020 Colorectal Cancer Screening due on 08/31/2021 Influenza Vaccine(1) due on 02/02/2023 Mammogram Screening due on 05/15/2023 Navigation Signature: Myrtle Tate MA April 03, 2023 8:15 AM Allergies As of Date: 04/03/2023 Noted Allergy Reaction environmental [Other] 12/16/2008 PLAQUENIL (HYDROXYCHLOROQUINE) 03/01/2023 2 - Rash Date Reviewed: 04/02/2023 Reviewed by: Candice Freeman - Fully Assessed Reason for Visit: Population Health Navigation Outreach [3910] Cmt: ACO CARE GAP Prescriptions as of 04/03/2023 - atorvastatin (LIPITOR) 40 mg tablet Take 40 mg by mouth daily at bedtime. - acetaminophen (TYLENOL) 500 mg tablet Take 500 mg by mouth every 8 hours as needed. 2 tabs taken - multivit with minerals/lutein (MULTIVITAMIN 50 PLUS ORAL) Take by mouth. - lisinopril (ZESTRIL, PRINIVIL) 20 mg tablet Take 1 tablet by mouth once daily. - FOLIC ACID ORAL Take 1 mg by mouth. - PREDNISONE ORAL Take 10 mg by mouth as needed. 3-5 days for flair ups - methotrexate 2.5 mg tablet Take 2.5 mg by mouth one time only. 4 pills on Sun - fluticasone (FLONASE) 50 mcg/actuation nasal spray Use 2 Sprays in each nostril once daily. Rinse mouth after use. - acetaminophen 325 mg-caffeine 40 mg-butalbital 50 mg (FIORICET) per tablet one every 4 hours as needed for migraine - metoprolol tartrate, short acting, (LOPRESSOR) 50 mg tablet Take 1 tablet by mouth twice daily. Meds Comments as of 11/01/2017: Centrum multivitamin Problem List As Of Date 04/03/2023 Noted Resolved MIGRAINE NEC [346.8] Lipidemia [E78.5] ALLERGIC RHINITIS NOS [J30.9] ESOPHAGEAL REFLUX [K21.9] ROTATOR CUFF SYND NOS [M71.9, M67.919] 12/31/2006 SCREEN (SEE ALSO ADMISSION) CANCER - COLON [Z*01/21/2007 BRACHIAL NEURITIS NOS [M54.12] 04/10/2008 Hypertension [I10] 03/24/2010 Pain in joint, lower leg [M25.569] 11/11/2013 Obesity, Class III, BMI 40-49.9 (morbid obesity*09/24/2017 Rheumatoid arthritis (HCC) [M06.9] 04/10/2022 Encounter Status:Closed by MYRTLE TATE on 04/03/23 [facility] 04-03-2023 Note HNO ID: [id number] Author: Myrtle Tate MA Service: ? Author Type: Medical Records Administrator Type: Progress Notes Filed: 04/03/2023 1:56 PM Note Text: POPULATION HEALTH NAVIGATION OUTREACH Action/FYI LVM NO MYCHART MAMMOGRAM Patient Identified by Name and : NO Outreach Outcome/Action Unable to reach patient: Left message Did you use a PCP flex slot to schedule this appointment? N/A Reason for Outreach Care Gap or Scheduling/Wellness visits Payer: Payor: MEDICARE / Plan: MEDICARE A AND B / Product Type: Medicare / Care Gap Reviewed:: Breast Cancer screening Reminder: Reminder note to check Health Maintenance for items below Health Maintenance items due: Pneumococcal Vaccine: 65+(1 - PCV) Never done BP Controlled (<130/80) Never done Shingrix Vaccine(1 of 2) Never done RSV Vaccine(1 - 1-dose 60+ series) Never done DTaP,Tdap,Td Vaccine(2 - Td or Tdap) due on 02/09/2019 Bone Density Screening Never done Covid-19 Vaccine(3 - Pfizer risk series) due on 10/15/2020 Colorectal Cancer Screening due on 08/31/2021 Influenza Vaccine(1) due on 02/02/2023 Mammogram Screening due on 05/15/2023 Navigation Signature: Myrtle Tate MA April 03, 2023 8:[address] [facility] 04-03-2023 History of Presen t illness Narrative POPULATION HEALTH NAVIGATION OUTREACH Action/FYI LVM NO MYCHART MAMMOGRAM Patient Identified by Name and : NO Outreach Outcome/Action Unable to reach patient: Left message Did you use a PCP flex slot to schedule this appointment? N/A Reason for Outreach Care Gap or Scheduling/Wellness visits Payer: Payor: MEDICARE / Plan: MEDICARE A AND B / Product Type: Medicare / Care Gap Reviewed:: Breast Cancer screening Reminder: Reminder note to check Health Maintenance for items below Health Maintenance items due: Pneumococcal Vaccine: 65+(1 - PCV) Never done BP Controlled (<130/80) Never done Shingrix Vaccine(1 of 2) Never done RSV Vaccine(1 - 1-dose 60+ series) Never done DTaP,Tdap,Td Vaccine(2 - Td or Tdap) due on 02/09/2019 Bone Density Screening Never done Covid-19 Vaccine(3 - Pfizer risk series) due on 10/15/2020 Colorectal Cancer Screening due on 08/31/2021 Influenza Vaccine(1) due on 02/02/2023 Mammogram Screening due on 05/15/2023 Navigation Signature: Myrtle Tate MA April 03, 2023 8:15 AM documented in this encounter [facility] 04-02-2023 Note HNO ID: [id number] Author: Fatmata Lara APRN.PROBE OPERATOR Service: ? Author Type: Nurse Practitioner Type: Progress Notes Filed: 04/02/2023 2:09 PM Note Text: Medicare Yearly Visit Medical B eligibilty date 11/01/2019 Date of last exam: First Exam PAST MEDICAL HISTORY Diagnosis Date Allergic rhinitis, cause unspecified GERD (gastroesophageal reflux disease) Other and unspecified hyperlipidemia Other forms of migraine PAST SURGICAL HISTORY Procedure Laterality Date DELIVERY ONLY 1992 , low cervical COLONOSCOPY FLX DX W/COLLJ SPEC WHEN PFRMD 09/01/11 repeat 10 yrs AVILES W/O FACETEC FORAMOT/DSC 06/05 VRT SGM CRV 2008 Laminectomy, cervical Migraines gone LIG/TRNSXJ FLP TUBE ABDL/VAG APPR UNI/BI Tubal ligation TONSILLECTOMY PRIMARY/SECONDARY Tonsillectomy ALLERGIES: Environmental [Other] and Plaquenil [Hydroxychloroquine] Medications reviewed: Yes FAMILY HISTORY Problem Relation Age of Onset Hypertension Mother Allergies Mother Hypertension Father Diabetes Father Heart Father Coronary Artery Disease Father Heart Brother No Known Problems Brother Colon Cancer Paternal Grandmother SOCIAL HISTORY: Social History Tobacco Use Smoking status: Never Smokeless tobacco: Never Vaping Use Vaping Use: Never used Substance Use Topics Alcohol use: No Drug use: No Kiarra denies regular aerobic exercise. She watches her diet for sodium, low fat and low cholesterol some of the time. List of current specialists seen: Dermatology: Dr. Figueredo. Cardiology: Annually at [facility], fax lab results. End of Live Planning discussed including patients advanced directive wishes: No I am willing to follow Kiarra's advanced directives. PHQ-2 / Depression screen She in the past two weeks denies, admits to having felt down, depressed, hopeless, or with little interest or pleasure in doing things. Has a sick relative on hospice. Functional Ability/Safety Screen 1. Was the patient's timed Up and Go test unsteady or longer than 30 seconds? No 2. Does the patient need help with the phone, transportation, shopping,preparing meals, housework, laundry, medications or managing money? No 3. Does your home have rugs in the hallway, lack of grab bars in the bathroom, lack of handrails on the stairs or have poor lighting? No Hearing Evaluation: normal PHYSICAL EXAM BP 118/80 (BP Site: Left Arm, BP Position: Sitting, BP Cuff Size: Regular Adult) Pulse 77 Resp 16 Wt 109.8 kg (242 lb) SpO2 97% BMI 43.56 kg/m? Alert and oriented X 3: YES Body mass index is 43.56 kg/m?. Visual acuity: Follows with opthalmology , has up coming appt in May. History of cataracts. Wearing glasses. ASSESSMENT/PLAN: 67 year old female The following prevention plan was discussed during the office visit and provided to the patient: - Counseled on healthy diet and regular exercise - Personalized prevention plan provided - Discussed need for and benefit of weight loss. BMI 43.56 kg/(m2) - Glaucoma screening - Lipid panel, results will be faxed to records administrator. - Complete mammogram - Cologuard has been ordered. Follow-up in 1 year or sooner pending test results. Discussed treatment plan and patient voices understanding. Patient's questions answered appropriately. Medications and potential side effects were discussed and patient voices understanding. Fatmata Lara APRN.BLAS This note was partially generated using Hactus voice recognition system. Note was reviewed for accuracy. There may be minor misspellings or grammar miscues with Hactus voice recognition. [facility] 04-02-2023 Instructions Fatmata Lara APRN.CNP - 04/02/2023 12:58 PM EDT Get fasting lab completed, no food 10-12 hours prior. May have black coffee and water. Mammogram order will be faxed to [facility]. Cologuard will be mailed to home Due for Tdap, may consider RSV or shingles vaccines in the future. Keep scheduled appt with Dermatology and cardiology. Continue to eat well balanced diet and stay active. Follow up in 1 year or sooner pending test results. documented in this encounter [facility] 04-02-2023 History of Presen t illness Narrative Medicare Yearly Visit Medical B eligibilty date 11/01/2019 Date of last exam: First Exam PAST MEDICAL HISTORY Diagnosis Date Allergic rhinitis, cause unspecified GERD (gastroesophageal reflux disease) Other and unspecified hyperlipidemia Other forms of migraine PAST SURGICAL HISTORY Procedure Laterality Date DELIVERY ONLY 1992 , low cervical COLONOSCOPY FLX DX W/COLLJ SPEC WHEN PFRMD 09/01/11 repeat 10 yrs AVILES W/O FACETEC FORAMOT/DSC 06/05 VRT SGM CRV 2008 Laminectomy, cervical Migraines gone LIG/TRNSXJ FLP TUBE ABDL/VAG APPR UNI/BI Tubal ligation TONSILLECTOMY PRIMARY/SECONDARY <AGE 12 Tonsillectomy ALLERGIES: Environmental [Other] and Plaquenil [Hydroxychloroquine] Medications reviewed: Yes FAMILY HISTORY Problem Relation Age of Onset Hypertension Mother Allergies Mother Hypertension Father Diabetes Father Heart Father Coronary Artery Disease Father Heart Brother No Known Problems Brother Colon Cancer Paternal Grandmother SOCIAL HISTORY: Social History Tobacco Use Smoking status: Never Smokeless tobacco: Never Vaping Use Vaping Use: Never used Substance Use Topics Alcohol use: No Drug use: No Kiarra denies regular aerobic exercise. She watches her diet for sodium, low fat and low cholesterol some of the time. List of current specialists seen: Dermatology: Dr. Figueredo. Cardiology: Annually at [facility], fax lab results. End of Live Planning discussed including patients advanced directive wishes: No I am willing to follow Kiarra's advanced directives. PHQ-2 / Depression screen She in the past two weeks denies, admits to having felt down, depressed, hopeless, or with little interest or pleasure in doing things. Has a sick relative on hospice. Functional Ability/Safety Screen 1. Was the patient's timed Up and Go test unsteady or longer than 30 seconds? No 2. Does the patient need help with the phone, transportation, shopping,preparing meals, housework, laundry, medications or managing money? No 3. Does your home have rugs in the hallway, lack of grab bars in the bathroom, lack of handrails on the stairs or have poor lighting? No Hearing Evaluation: normal PHYSICAL EXAM BP 118/80 (BP Site: Left Arm, BP Position: Sitting, BP Cuff Size: Regular Adult) Pulse 77 Resp 16 Wt 109.8 kg (242 lb) SpO2 97% BMI 43.56 kg/m Alert and oriented X 3: YES Body mass index is 43.56 kg/m . Visual acuity: Follows with opthalmology , has up coming appt in May. History of cataracts. Wearing glasses. ASSESSMENT/PLAN: 67 year old female The following prevention plan was discussed during the office visit and provided to the patient: - Counseled on healthy diet and regular exercise - Personalized prevention plan provided - Discussed need for and benefit of weight loss. BMI 43.56 kg/(m^2) - Glaucoma screening - Lipid panel, results will be faxed to records administrator. - Complete mammogram - Cologuard has been ordered. Follow-up in 1 year or sooner pending test results. Discussed treatment plan and patient voices understanding. Patient's questions answered appropriately. Medications and potential side effects were discussed and patient voices understanding. Fatmata Lara APRN.BLAS This note was partially generated using Hactus voice recognition system. Note was reviewed for accuracy. There may be minor misspellings or grammar miscues with Hactus voice recognition. documented in this encounter [facility] 03-13-2023 Miscellaneous Notes Demo, OV, insurance cards, Referral, faxed to Dr. Jay Ivan's office [place] to refer as requested Jarvis Egan MD Patient calls and states that rash did not improve at all after prescribed prednisone. Patient states it was suggested to her to see a Client Retention Specialist for this. Patient asking if provider can place a referral to Dermatology and send referral to Dr. Jay Ivan. Please review and advise, Esme Devine RN documented in this encounter [facility] 03-07-2023 Note Patient Outreach (NE TNAV) KIARRA VALERIO ([id number]) 1955 F Date Time Provider Department 03/07/23 MYRTLE TATE During your visit today, we recorded the following information about you: Myrtle Tate MA 03/09/2023 2:45 PM Addendum POPULATION HEALTH NAVIGATION OUTREACH Action/FYI Spoke with Kiarra. Scheduled medicare wellness exam. Patient goes to [facility] for mammograms. LVM NO MYCHART ANNUAL MEDICARE WELLNESS Colorectal Cancer Screening due on 08/31/2021 Advance Directive Discussion Never done Influenza Vaccine(1) due on 02/02/2023 Mammogram Screening due on 05/15/2023 Patient Identified by Name and : YES, via phone Outreach Outcome/Action Spoke to patient / parent / legal guardian: Patient scheduled Unable to reach patient: Left message Did you use a PCP flex slot to schedule this appointment? No Reason for Outreach Care Gap or Scheduling/Wellness visits Payer: Payor: MEDICARE / Plan: MEDICARE A AND B / Product Type: Medicare / Care Gap Reviewed:: Annual Wellness visit Breast Cancer screening Colorectal Cancer Screening Flu Vaccine Reminder: Reminder note to check Health Maintenance for items below Health Maintenance items due: Pneumococcal Vaccine: 65+(1 - PCV) Never done Shingrix Vaccine(1 of 2) Never done DTaP,Tdap,Td Vaccine(2 - Td or Tdap) due on 02/09/2019 Bone Density Screening Never done Covid-19 Vaccine(3 - Pfizer risk series) due on 10/15/2020 Colorectal Cancer Screening due on 08/31/2021 Advance Directive Discussion Never done Depression Assessment Never done Influenza Vaccine(1) due on 02/02/2023 Mammogram Screening due on 05/15/2023 Navigation Signature: Myrtle Tate MA March 07, 2023 8:54 AM Allergies As of Date: 03/07/2023 Noted Allergy Reaction environmental [Other] 12/16/2008 PLAQUENIL (HYDROXYCHLOROQUINE) 03/01/2023 2 - Rash Date Reviewed: 03/01/2023 Reviewed by: Fatmata Lara APRN.PROBE OPERATOR - Fully Assessed Reason for Visit: Population Health Navigation Outreach [3910] Cmt: ACO BP AND DM Prescriptions as of 03/09/2023 - atorvastatin (LIPITOR) 40 mg tablet Take 40 mg by mouth daily at bedtime. - acetaminophen (TYLENOL) 500 mg tablet Take 500 mg by mouth every 8 hours as needed. 2 tabs taken - multivit with minerals/lutein (MULTIVITAMIN 50 PLUS ORAL) Take by mouth. - predniSONE (DELTASONE) 10 mg tablet Take 4 tabs daily for 3 days, then 2 tabs daily for 3 days, then 1 tab daily for 3 days with food. - lisinopril (ZESTRIL, PRINIVIL) 20 mg tablet Take 1 tablet by mouth once daily. - FOLIC ACID ORAL Take 1 mg by mouth. - PREDNISONE ORAL Take 10 mg by mouth as needed. 3-5 days for flair ups - methotrexate 2.5 mg tablet Take 2.5 mg by mouth one time only. 4 pills on Sun - fluticasone (FLONASE) 50 mcg/actuation nasal spray Use 2 Sprays in each nostril once daily. Rinse mouth after use. - acetaminophen 325 mg-caffeine 40 mg-butalbital 50 mg (FIORICET) per tablet one every 4 hours as needed for migraine - metoprolol tartrate, short acting, (LOPRESSOR) 50 mg tablet Take 1 tablet by mouth twice daily. 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 03-07-2023 Note HNO ID: [id number] Author: Myrtle Tate MA Service: ? Author Type: Medical Records Administrator Type: Progress Notes Filed: 03/09/2023 2:45 PM Note Text: POPULATION HEALTH NAVIGATION OUTREACH Action/FYI Spoke with Kiarra. Scheduled medicare wellness exam. Patient goes to [facility] for mammograms. LVM NO MYCHART ANNUAL MEDICARE WELLNESS Colorectal Cancer Screening due on 08/31/2021 Advance Directive Discussion Never done Influenza Vaccine(1) due on 02/02/2023 Mammogram Screening due on 05/15/2023 Patient Identified by Name and : YES, via phone Outreach Outcome/Action Spoke to patient / parent / legal guardian: Patient scheduled Unable to reach patient: Left message Did you use a PCP flex slot to schedule this appointment? No Reason for Outreach Care Gap or Scheduling/Wellness visits Payer: Payor: MEDICARE / Plan: MEDICARE A AND B / Product Type: Medicare / Care Gap Reviewed:: Annual Wellness visit Breast Cancer screening Colorectal Cancer Screening Flu Vaccine Reminder: Reminder note to check Health Maintenance for items below Health Maintenance items due: Pneumococcal Vaccine: 65+(1 - PCV) Never done Shingrix Vaccine(1 of 2) Never done DTaP,Tdap,Td Vaccine(2 - Td or Tdap) due on 02/09/2019 Bone Density Screening Never done Covid-19 Vaccine(3 - Pfizer risk series) due on 10/15/2020 Colorectal Cancer Screening due on 08/31/2021 Advance Directive Discussion Never done Depression Assessment Never done Influenza Vaccine(1) due on 02/02/2023 Mammogram Screening due on 05/15/2023 Navigation Signature: Myrtle Tate MA March 07, 2023 8:[address] [facility] 03-07-2023 History of Presen t illness Narrative POPULATION HEALTH NAVIGATION OUTREACH Action/FYI LVM NO MYCHART ANNUAL MEDICARE WELLNESS Colorectal Cancer Screening due on 08/31/2021 Advance Directive Discussion Never done Influenza Vaccine(1) due on 02/02/2023 Mammogram Screening due on 05/15/2023 Patient Identified by Name and : NO Outreach Outcome/Action Unable to reach patient: Left message Did you use a PCP flex slot to schedule this appointment? No Reason for Outreach Care Gap or Scheduling/Wellness visits Payer: Payor: MEDICARE / Plan: MEDICARE A AND B / Product Type: Medicare / Care Gap Reviewed:: Annual Wellness visit Breast Cancer screening Colorectal Cancer Screening Flu Vaccine Reminder: Reminder note to check Health Maintenance for items below Health Maintenance items due: Pneumococcal Vaccine: 65+(1 - PCV) Never done Shingrix Vaccine(1 of 2) Never done DTaP,Tdap,Td Vaccine(2 - Td or Tdap) due on 02/09/2019 Bone Density Screening Never done Covid-19 Vaccine(3 - Pfizer risk series) due on 10/15/2020 Colorectal Cancer Screening due on 08/31/2021 Advance Directive Discussion Never done Depression Assessment Never done Influenza Vaccine(1) due on 02/02/2023 Mammogram Screening due on 05/15/2023 Navigation Signature: Myrtle Tate MA March 07, 2023 8:54 AM documented in this encounter [facility] 03-01-2023 Note HNO ID: [id number] Author: Fatmata Lara APRN.PROBE OPERATOR Service: ? Author Type: Nurse Practitioner Type: Progress Notes Filed: 03/01/2023 8:31 AM Note Text: This is a 67 year old female who presents today with: Patient presents with: Acute Visit: rash, diet medication HISTORY OF PRESENT ILLNESS: Kiarra Valerio is a 67 year old female. Patient presents with: Acute Visit: rash, diet medication Rash: Stopped plaquenil in January, developed a rash. Was given cortisone injection and did 10 days of steroids low dose. Following with Dr. Snyder in Rheumatology for rheumatoid arthritis. Follow up next month. Diet: Tried Adipex in the past, never had follow-up back in February 2022 with PCP. Refers she wants to work on losing weight. Just started walking. PAST MEDICAL HISTORY: PAST MEDICAL HISTORY Diagnosis Date Allergic rhinitis, cause unspecified GERD (gastroesophageal reflux disease) Other and unspecified hyperlipidemia Other forms of migraine PAST SURGICAL HISTORY Procedure Laterality Date DELIVERY ONLY 1992 , low cervical COLONOSCOPY FLX DX W/COLLJ SPEC WHEN PFRMD 09/01/11 repeat 10 yrs AVILES W/O FACETEC FORAMOT/DSC 06/05 VRT SGM CRV 2008 Laminectomy, cervical Migraines gone LIG/TRNSXJ FLP TUBE ABDL/VAG APPR UNI/BI Tubal ligation TONSILLECTOMY PRIMARY/SECONDARY Tonsillectomy ALLERGIES Environmental [Other] MEDICATIONS Current Outpatient Medications Medication Sig lisinopril (ZESTRIL, PRINIVIL) 20 mg tablet Take 1 tablet by mouth once daily. FOLIC ACID ORAL Take 1 mg by mouth. PREDNISONE ORAL Take 15 mg by mouth once daily. methotrexate 2.5 mg tablet Take 2.5 mg by mouth one time only. 4 pills on Sun fluticasone (FLONASE) 50 mcg/actuation nasal spray Use 2 Sprays in each nostril once daily. Rinse mouth after use. acetaminophen 325 mg-caffeine 40 mg-butalbital 50 mg (FIORICET) per tablet one every 4 hours as needed for migraine metoprolol tartrate, short acting, (LOPRESSOR) 50 mg tablet Take 1 tablet by mouth twice daily. No current facility-administered medications for this visit. FAMILY HISTORY Problem Relation Age of Onset Hypertension Mother Allergies Mother Hypertension Father Diabetes Father Heart Father Coronary Artery Disease Father Heart Brother No Known Problems Brother Colon Cancer Paternal Grandmother Social History Tobacco Use Smoking status: Never Smokeless tobacco: Never Vaping Use Vaping Use: Never used Substance Use Topics Alcohol use: No Drug use: No REVIEW OF SYSTEMS GENERAL: No weight loss, malaise or fevers/chills HEENT: Negative for frequent or significant headaches, No changes in hearing or vision. NECK: Negative for lumps, goiter, pain and significant neck swelling RESPIRATORY: Negative for cough, hemoptysis, wheezing, dyspnea or shortness of breath CARDIOVASCULAR: Negative for chest pain, leg swelling, orthopnea, or palpitations GI: No nausea, vomiting, or diarrhea/constipation. No hematochezia/melena. No heartburn or reflux symptoms. : No history of dysuria, frequency or incontinence MUSCULOSKELETAL: Negative for joint pain or swelling. SKIN: + Rash ENDOCRINE: Negative for cold or heat intolerance, polyuria, polydipsia and goiter NEURO: No history of headaches, syncope, paralysis, seizures or tremors MOOD: Negative for depression, anxiety, or suicidal ideation. EXAM: BP 108/68 Pulse 79 Resp 16 Wt 110.2 kg (243 lb) SpO2 98% BMI 43.74 kg/m? PHYSICAL EXAM: General Appearance: Well appearing, alert, in no acute distress, well-hydrated, well nourished. Skin: + various dry, erythematic macules noted on bilateral arms. No crusting or seeping. Head: Normocephalic, no masses, lesions, tenderness or abnormalities. Eyes: Anicteric sclera. Extraocular movements are intact. Lungs: Lungs clear to auscultation. No wheezing, rhonchi, rales. Heart: RRR without murmur, gallop, or rubs. No ectopy. Extremities: No deformities, edema, skin discoloration, clubbing or cyanosis. Good capillary refill. Peripheral Pulses: Normal, Capillary refill <2secs, strong peripheral pulses, Pulses palpable. Neurologic: Gait normal. Sensation grossly intact. ASSESSMENT/PLAN: 1. Dermatitis - ICD9: 692.9, ICD10: L30.9 (primary diagnosis) - Oral Steriod tx -Prednisone taper - discussed skin care of rash - follow up if symptoms persist or worsen. - PREDNISONE 10 MG TABLET 2. Class 3 severe obesity with body mass index (BMI) of 40.0 to 44.9 in adult, unspecified obesity type, unspecified whether serious comorbidity present (HCC) - ICD9: 278.01, V85.41, ICD10: E66.01, Z68.41 - Discussed the importance of making lifestyle changes at home before starting Adipex again in the future. - Recommend increasing protein, vegetables, and getting consistent exercise. - Recommend tracking food. Follow up as needed. Discussed treatment plan and patient voices understanding. Pat (more content not included)... [facility] 10-19-2022 Note HNO ID: [id number] Author: Mary Martinez MA Service: ? Author Type: Medical Records Administrator Type: Progress Notes Filed: 10/19/2022 3:54 PM Note Text: POPULATION HEALTH NAVIGATION OUTREACH Action/FYI October 19, 2022 3:22 PM HCC Gaps E66.01 - Morbid (severe) obesity due to excess calories M06.9 - Rheumatoid arthritis (HCC) - [id number] Last Billed 04/10/2022 JORGE with PCP team was April 10, 2022 with Fatmata Kuhn CNP Care Gaps due / ACO ~BP Contolled ~Colorectal Cancer Screening Outcome: Left message for patient to return call. Patient Identified by Name and : NO Outreach Outcome/Action Unable to reach patient: Left message Did you use a PCP flex slot to schedule this appointment? N/A Reason for Outreach [facility] Payer: Payor: MEDICARE / Plan: MEDICARE A AND B / Product Type: Medicare / Care Gap Reviewed:: Follow-up appointment Controlling Blood Pressure Colorectal Cancer Screening Reminder: Reminder note to check Health Maintenance for items below Health Maintenance items due: PNEUMOCOCCAL: 65+(1 - PCV) Never done BP CONTROLLED (<130/80) Never done SHINGRIX VACCINE(1 of 2) Never done DTAP,TDAP,TD(2 - Td or Tdap) due on 02/09/2019 BONE DENSITY Never done COVID-19 VACCINE(3 - Pfizer risk series) due on 10/15/2020 COLORECTAL CANCER SCREENING due on 08/31/2021 ADVANCE DIRECTIVE DISCUSSION Never done DEPRESSION ASSESSMENT Never done Navigation Signature: Mary Martinez MA October 19, 2022 3:[address] [facility] 10-19-2022 Note Patient Outreach (TD TNAV) KIARRA VALERIO ([id number]) 1955 F Date Time Provider Department 10/19/22 MARY MARTINEZ During your visit today, we recorded the following information about you: Mary Martinez MA 10/19/2022 3:54 PM Signed POPULATION HEALTH NAVIGATION OUTREACH Action/FYI October 19, 2022 3:22 PM HCC Gaps E66.01 - Morbid (severe) obesity due to excess calories M06.9 - Rheumatoid arthritis (HCC) - [id number] Last Billed 04/10/2022 JORGE with PCP team was April 10, 2022 with Fatmata Kuhn CNP Care Gaps due / ACO ~BP Contolled ~Colorectal Cancer Screening Outcome: Left message for patient to return call. Patient Identified by Name and : NO Outreach Outcome/Action Unable to reach patient: Left message Did you use a PCP flex slot to schedule this appointment? N/A Reason for Outreach [facility] Payer: Payor: MEDICARE / Plan: MEDICARE A AND B / Product Type: Medicare / Care Gap Reviewed:: Follow-up appointment Controlling Blood Pressure Colorectal Cancer Screening Reminder: Reminder note to check Health Maintenance for items below Health Maintenance items due: PNEUMOCOCCAL: 65+(1 - PCV) Never done BP CONTROLLED (<130/80) Never done SHINGRIX VACCINE(1 of 2) Never done DTAP,TDAP,TD(2 - Td or Tdap) due on 02/09/2019 BONE DENSITY Never done COVID-19 VACCINE(3 - Pfizer risk series) due on 10/15/2020 COLORECTAL CANCER SCREENING due on 08/31/2021 ADVANCE DIRECTIVE DISCUSSION Never done DEPRESSION ASSESSMENT Never done Navigation Signature: Mary Martinez MA October 19, 2022 3:22 PM Allergies As of Date: 10/19/2022 Noted Allergy Reaction environmental [Other] 12/16/2008 Date Reviewed: 04/17/2022 Reviewed by: Carol Tim APRN.BLAS - Fully Assessed Reason for Visit: Population Health Navigation Outreach [3910] Cmt: ACO HCC Prescriptions as of 10/19/2022 - lisinopril (ZESTRIL, PRINIVIL) 20 mg tablet Take 1 tablet by mouth once daily. - FOLIC ACID ORAL Take 1 mg by mouth. - PREDNISONE ORAL Take 15 mg by mouth once daily. - methotrexate 2.5 mg tablet Take 2.5 mg by mouth one time only. 4 pills on Sun - fluticasone (FLONASE) 50 mcg/actuation nasal spray Use 2 Sprays in each nostril once daily. Rinse mouth after use. - acetaminophen 325 mg-caffeine 40 mg-butalbital 50 mg (FIORICET) per tablet one every 4 hours as needed for migraine - metoprolol tartrate, short acting, (LOPRESSOR) 50 mg tablet Take 1 tablet by mouth twice daily. 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 08-23-2022 Note Patient Outreach (TD ROBERTO) KIARRA VALERIO ([id number]) 1955 F Date Time Provider Department 08/23/22 MYRTLE TATE During your visit today, we recorded the following information about you: Myrtle Tate MA 08/23/2022 1:38 PM Signed POPULATION HEALTH NAVIGATION OUTREACH Action/FYI LVM NO MYCHART MESSAGE ANNUAL MEDICARE WELLNESS BP CONTROLLED (<130/80) Never done COLORECTAL CANCER SCREENING due on 08/31/2021 MYCHART ACTIVATION Patient Identified by Name and : NO Outreach Outcome/Action Unable to reach patient: Left message Did you use a PCP flex slot to schedule this appointment? N/A Reason for Outreach Care Gap or Scheduling/Wellness visits Payer: Payor: MEDICARE / Plan: MEDICARE A AND B / Product Type: Medicare / Care Gap Reviewed:: Annual Wellness visit Controlling Blood Pressure Colorectal Cancer Screening Reminder: Reminder note to check Health Maintenance for items below Health Maintenance items due: PNEUMOCOCCAL: 65+(1 - PCV) Never done BP CONTROLLED (<130/80) Never done SHINGRIX VACCINE(1 of 2) Never done DTAP,TDAP,TD(2 - Td or Tdap) due on 02/09/2019 BONE DENSITY Never done COVID-19 VACCINE(3 - Pfizer risk series) due on 10/15/2020 COLORECTAL CANCER SCREENING due on 08/31/2021 ADVANCE DIRECTIVE DISCUSSION Never done DEPRESSION ASSESSMENT Never done Navigation Signature: Myrtle Tate MA August 23, 2022 8:45 AM Allergies As of Date: 08/23/2022 Noted Allergy Reaction environmental [Other] 12/16/2008 Date Reviewed: 04/17/2022 Reviewed by: Carol Tim APRN.PROBE OPERATOR - Fully Assessed Reason for Visit: Population Health Navigation Outreach [3910] Cmt: FRANCISCO [facility] PCSA Prescriptions as of 08/23/2022 - lisinopril (ZESTRIL, PRINIVIL) 20 mg tablet Take 1 tablet by mouth once daily. - FOLIC ACID ORAL Take 1 mg by mouth. - PREDNISONE ORAL Take 15 mg by mouth once daily. - methotrexate 2.5 mg tablet Take 2.5 mg by mouth one time only. 4 pills on Sun - fluticasone (FLONASE) 50 mcg/actuation nasal spray Use 2 Sprays in each nostril once daily. Rinse mouth after use. - acetaminophen 325 mg-caffeine 40 mg-butalbital 50 mg (FIORICET) per tablet one every 4 hours as needed for migraine - metoprolol tartrate, short acting, (LOPRESSOR) 50 mg tablet Take 1 tablet by mouth twice daily. 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 08-23-2022 Note HNO ID: [id number] Author: Myrtle Tate MA Service: ? Author Type: Medical Records Administrator Type: Progress Notes Filed: 08/23/2022 1:38 PM Note Text: POPULATION HEALTH NAVIGATION OUTREACH Action/FYI LVM NO MYCHART MESSAGE ANNUAL MEDICARE WELLNESS BP CONTROLLED (<130/80) Never done COLORECTAL CANCER SCREENING due on 08/31/2021 MYCHART ACTIVATION Patient Identified by Name and : NO Outreach Outcome/Action Unable to reach patient: Left message Did you use a PCP flex slot to schedule this appointment? N/A Reason for Outreach Care Gap or Scheduling/Wellness visits Payer: Payor: MEDICARE / Plan: MEDICARE A AND B / Product Type: Medicare / Care Gap Reviewed:: Annual Wellness visit Controlling Blood Pressure Colorectal Cancer Screening Reminder: Reminder note to check Health Maintenance for items below Health Maintenance items due: PNEUMOCOCCAL: 65+(1 - PCV) Never done BP CONTROLLED (<130/80) Never done SHINGRIX VACCINE(1 of 2) Never done DTAP,TDAP,TD(2 - Td or Tdap) due on 02/09/2019 BONE DENSITY Never done COVID-19 VACCINE(3 - Pfizer risk series) due on 10/15/2020 COLORECTAL CANCER SCREENING due on 08/31/2021 ADVANCE DIRECTIVE DISCUSSION Never done DEPRESSION ASSESSMENT Never done Navigation Signature: Myrtle Tate MA August 23, 2022 8:[address] [facility] 08-23-2022 History of Presen t illness Narrative POPULATION HEALTH NAVIGATION OUTREACH Action/FYI LVM NO MYCHART MESSAGE ANNUAL MEDICARE WELLNESS BP CONTROLLED (<130/80) Never done COLORECTAL CANCER SCREENING due on 08/31/2021 MYCHART ACTIVATION Patient Identified by Name and : NO Outreach Outcome/Action Unable to reach patient: Left message Did you use a PCP flex slot to schedule this appointment? N/A Reason for Outreach Care Gap or Scheduling/Wellness visits Payer: Payor: MEDICARE / Plan: MEDICARE A AND B / Product Type: Medicare / Care Gap Reviewed:: Annual Wellness visit Controlling Blood Pressure Colorectal Cancer Screening Reminder: Reminder note to check Health Maintenance for items below Health Maintenance items due: PNEUMOCOCCAL: 65+(1 - PCV) Never done BP CONTROLLED (<130/80) Never done SHINGRIX VACCINE(1 of 2) Never done DTAP,TDAP,TD(2 - Td or Tdap) due on 02/09/2019 BONE DENSITY Never done COVID-19 VACCINE(3 - Pfizer risk series) due on 10/15/2020 COLORECTAL CANCER SCREENING due on 08/31/2021 ADVANCE DIRECTIVE DISCUSSION Never done DEPRESSION ASSESSMENT Never done Navigation Signature: Myrtle Tate MA August 23, 2022 8:45 AM documented in this encounter [facility] 05-12-2022 Miscellaneous Notes The following approved medication requests have been transmitted electronically. Requested Prescriptions Pending Prescriptions Disp Refills lisinopril (ZESTRIL, PRINIVIL) 20 mg tablet 30 tablet 11 Sig: Take 1 tablet by mouth once daily. Jarad Caraballo APRN.CNP Patient has been identified by name and date of : Yes Last office visit in this department: 04/10/2022 Labs-04/25/22 NOV-07/12/22 med filled 05/18/21 RX INSTRUCTIONS: Patient aware RX will be sent to pharmacy. No need to notify patient. Patient phones requesting refills as follows: Requested Prescriptions Pending Prescriptions Disp Refills lisinopril (ZESTRIL, PRINIVIL) 20 mg tablet 30 tablet 11 Sig: Take 1 tablet by mouth once daily. Please review and advise. Alethea Sanchez Pss documented in this encounter [facility] 04-10-2022 Instructions Fatmata Lara APRN.BLAS - 04/10/2022 1:20 PM EST Continue to take all medication as prescribed. Keep scheduled appointments with Dr. Snyder. May schedule appointment for JOB COACH for Pap Mammogram order will be sent to [facility]. Follow up in 3 months. documented in this encounter [facility] 04-10-2022 History of Presen t illness Narrative This is a 66 year old female who presents today with: Patient presents with: Follow Up: 1 month for weight HISTORY OF PRESENT ILLNESS: Kiarra Valerio is a 66 year old female. Patient presents with: Follow Up: 1 month for weight Here in the office for weight check. Was taking Adipex 37.5 mg from PCP to help with weight loss. Last visit in February was her third refill. Was watching diet and getting exercise but stopped about 1 month ago due to increased pain. Just diagnosed with RA, see Dr. Snyder (rheumatology). Specialist recommended that she not continue with Adipex use. She started prednisone, folic acid, methotrexate. Next follow up later this month. Refers that medication regiment has been helpful with pain and will try to start eating better and exercising again soon. No other concerns today. Would like flu vaccine today. Due for mammogram and Pap at this time. PAST MEDICAL HISTORY: PAST MEDICAL HISTORY Diagnosis Date Allergic rhinitis, cause unspecified GERD (gastroesophageal reflux disease) Other and unspecified hyperlipidemia Other forms of migraine PAST SURGICAL HISTORY Procedure Laterality Date DELIVERY ONLY 1992 , low cervical COLONOSCOPY FLX DX W/COLLJ SPEC WHEN PFRMD 09/01/11 repeat 10 yrs AVILES W/O FACETEC FORAMOT/DSC 06/05 VRT SGM CRV 2008 Laminectomy, cervical Migraines gone LIG/TRNSXJ FLP TUBE ABDL/VAG APPR UNI/BI Tubal ligation TONSILLECTOMY PRIMARY/SECONDARY <AGE 12 Tonsillectomy ALLERGIES Environmental [Other] MEDICATIONS Current Outpatient Medications Medication Sig lisinopril (ZESTRIL, PRINIVIL) 20 mg tablet Take 1 tablet by mouth once daily. nystatin (NYSTOP) powder APPLY TO AFFECTED AREA FOUR TIMES DAILY acetaminophen 325 mg-caffeine 40 mg-butalbital 50 mg (FIORICET) per tablet one every 4 hours as needed for migraine metoprolol tartrate, short acting, (LOPRESSOR) 50 mg tablet Take 1 tablet by mouth twice daily. meloxicam (MOBIC) 15 mg tablet Take 1 tablet by mouth once daily. With food. Start after finishing Medrol Dose (Patient not taking: Reported on 05/18/2021 ) fluticasone (FLONASE) 50 mcg/actuation nasal spray Use 2 Sprays in each nostril once daily. Rinse mouth after use. multivitamin/iron/folic acid (CENTRUM WOMEN ORAL) Take by mouth. COMPOUNDED PRESCRIPTION Take 1 tablet by mouth once daily. Iron supplement Ufrgkmd-Wktzdlzqikenh-Pucndxqt (EXCEDRIN MIGRAINE) 250-250-65 mg per tablet Take 1 tablet by mouth every 6 hours as needed. No current facility-administered medications for this visit. FAMILY HISTORY Problem Relation Age of Onset Hypertension Mother Hypertension Father Diabetes Father Allergies Mother Heart Father Colon Cancer Paternal Grandmother Coronary Artery Disease Father Social History Tobacco Use Smoking status: Never Smokeless tobacco: Never Substance Use Topics Alcohol use: No Drug use: No REVIEW OF SYSTEMS GENERAL: No weight loss, malaise or fevers/chills HEENT: Negative for frequent or significant headaches, No changes in hearing or vision. NECK: Negative for lumps, goiter, pain and significant neck swelling RESPIRATORY: Negative for cough, hemoptysis, wheezing, dyspnea or shortness of breath CARDIOVASCULAR: Negative for chest pain, leg swelling, orthopnea, or palpitations GI: No nausea, vomiting, or diarrhea/constipation. No hematochezia/melena. No heartburn or reflux symptoms. : No history of dysuria, frequency or incontinence MUSCULOSKELETAL: Negative for joint pain or swelling. SKIN: Negative for lesions, rash, and itching ENDOCRINE: Negative for cold or heat intolerance, polyuria, polydipsia and goiter NEURO: No history of headaches, syncope, paralysis, seizures or tremors MOOD: Negative for depression, anxiety, or suicidal ideation. EXAM: BP 126/70 Pulse 86 Resp 16 Wt 106.6 kg (235 lb) SpO2 98% BMI 41.63 kg/m PHYSICAL EXAM: General Appearance: Well appearing, alert, in no acute distress, well-hydrated, well nourished. Skin: Skin color, texture, turgor normal, no suspicious rashes or lesions. Head: Normocephalic, no masses, lesions, tenderness or abnormalities. Eyes: Anicteric sclera. Extraocular movements are intact. Lungs: Lungs clear to auscultation. No wheezing, rhonchi, rales. Heart: RRR without murmur, gallop, or rubs. No ectopy. Extremities: No deformities, edema, skin discoloration, clubbing or cyanosis. Good capillary refill. Peripheral Pulses: Normal, Capillary refill <2secs, strong peripheral pulses, Pulses palpable. Neurologic: Gait normal. Reflexes normal and symmetric. Sensation grossly intact. ASSESSMENT/PLAN: 1. Rheumatoid arthritis, involving unspecified site, unspecified whether rheumatoid factor present (HCC) - ICD9: 714.0, ICD10: M06.9 (primary diagnosis) - Continue current medications. - Keep scheduled appointments with rheumatology. 2. Chronic sinusitis, unspecified location - ICD9: 473.9, ICD10: J32.9 - Refill provided. - FLUTICASONE PROPIONATE 50 MCG/ACTUATION NASAL SPRAY,SUSPENSION 3. Encounter for screening mammogram for malignant neoplasm of breast - ICD9: V76.12, ICD10: Z12.31 - JUAN F SCREENING 4. Women's annual routine gynecological examination - ICD9: V72.31, ICD10: Z01.419 - CONSULT TO GYNECOLOGY 5. Influenza vaccine needed - ICD9: V04.81, ICD10: Z23 - VIS provided. - INFLUENZA SEASONAL QUADRIVALENT HIGH DOSE AGE 65+ Follow-up in 3 months or sooner as needed. Discussed treatment plan and patient voices understanding. Patient's questions answered appropriately. Medications and potential side effects were discussed and patient voices understanding. Fatmata Lara APRN.BLAS This note was partially generated using Hactus voice recognition system. Note was reviewed for accuracy. There may be minor misspellings or grammar miscues with [employer]us voice recognition. documented in this encounter [facility] 01-23-2022 History of Presen t illness Narrative Chief Complaint Patient presents with: F/U 1 month HPI Kiarra Valerio is a 66 year old female who presents here today for 1 month f/u. Obesity: Finished 2nd rx of Adipex. Tolerating medication well, appetite suppressed. Drinking more water. Sleeping well. Tries to watch diet, watching portion sizes. Walking 30-45 minutes a day. Weight last month 239 lbs. Admits to not doing as well this month due to going on vacation for 1 week at [facility]. Did not eat as good, eating more fast food, but did do a lot of walking. Does help reduce her appetite. Also had other stressors that affected her eating. Wants to discuss possible arthritis in her fingers/hands that started couple days ago with edema. Denies any stiffness in the morning. Pt states she does have swelling that concerns her in fingers and hands periodically. At times the pain will get so bad that she can't sleep. Notes that her mother had really bad arthritis; had seen Dr Snyder. Will use OTC Arthritis, Tylenol. Past medical history, appointments, medications, allergies reviewed. Previous Medical History PAST MEDICAL HISTORY Diagnosis Date Allergic rhinitis, cause unspecified GERD (gastroesophageal reflux disease) Other and unspecified hyperlipidemia Other forms of migraine Previous Surgical History PAST SURGICAL HISTORY Procedure Laterality Date DELIVERY ONLY 1992 , low cervical COLONOSCOPY FLX DX W/COLLJ SPEC WHEN PFRMD 09/01/11 repeat 10 yrs AVILES W/O FACETEC FORAMOT/DSC 1/2 VRT SGM CRV 2008 Laminectomy, cervical Migraines gone LIG/TRNSXJ FLP TUBE ABDL/VAG APPR UNI/BI Tubal ligation TONSILLECTOMY PRIMARY/SECONDARY <AGE 12 Tonsillectomy Family History FAMILY HISTORY Problem Relation Age of Onset Hypertension Mother Hypertension Father Diabetes Father Allergies Mother Heart Father Colon Cancer Paternal Grandmother Coronary Artery Disease Father Patient Allergies ALLERGIES Allergen Reactions Environmental [Othe* Current Medications Current Outpatient Medications on File Prior to Visit Medication Sig Phentermine HCl 37.5 mg tablet Take 1 tablet by mouth once daily for 30 days. lisinopril (ZESTRIL, PRINIVIL) 20 mg tablet Take 1 tablet by mouth once daily. nystatin (NYSTOP) powder APPLY TO AFFECTED AREA FOUR TIMES DAILY acetaminophen 325 mg-caffeine 40 mg-butalbital 50 mg (FIORICET) per tablet one every 4 hours as needed for migraine metoprolol tartrate, short acting, (LOPRESSOR) 50 mg tablet Take 1 tablet by mouth twice daily. meloxicam (MOBIC) 15 mg tablet Take 1 tablet by mouth once daily. With food. Start after finishing Medrol Dose (Patient not taking: Reported on 05/18/2021 ) fluticasone (FLONASE) 50 mcg/actuation nasal spray Use 2 Sprays in each nostril once daily. Rinse mouth after use. multivitamin/iron/folic acid (CENTRUM WOMEN ORAL) Take by mouth. COMPOUNDED PRESCRIPTION Take 1 tablet by mouth once daily. Iron supplement Jhkmtit-Hxqlwftwtbpab-Cywmmvld (EXCEDRIN MIGRAINE) 250-250-65 mg per tablet Take 1 tablet by mouth every 6 hours as needed. No current facility-administered medications on file prior to visit. Social History Social History Tobacco Use Smoking status: Never Smokeless tobacco: Never Substance Use Topics Alcohol use: No Drug use: No EXAM: BP 124/80 (BP Site: Left Arm, BP Position: Sitting, BP Cuff Size: Large Adult) Pulse 88 Resp 20 Wt 106.8 kg (235 lb 6.4 oz) BMI 41.70 kg/m General Appearance: Well appearing, alert, in no acute distress, well-hydrated, well nourished. and Obese. Lungs: Lungs clear to auscultation. No wheezing, rhonchi, rales.. Heart: RRR without murmur, gallop, or rubs. No ectopy. Extremities: B/L hands and fingers evaluated. Arthritis appearing. Health Maintenance List SHINGRIX VACCINE(1 of 2) Never done MAMMOGRAM due on 05/03/2016 DTAP,TDAP,TD(2 - Td or Tdap) due on 02/09/2019 BONE DENSITY Never done PNEUMOCOCCAL: 65+(1 - PCV) Never done COVID-19 VACCINE(3 - Booster for Pfizer series) due on 02/17/2021 ADVANCE DIRECTIVE DISCUSSION Never done COLORECTAL CANCER SCREENING due on 08/31/2021 HEPATITIS C SCREENING due on 12/22/2022 INFLUENZA(1) due on 02/02/2022 ANNUAL PCP TEAM CHRONIC DISEASE VISIT due on 12/22/2022 BP CONTROLLED (<130/80) due on 12/22/2022 DEPRESSION SCREENING due on 12/22/2022 DIABETES SCREEN due on 03/17/2024 LIPID SCREEN due on 03/17/2026 Data reviewed Weight graph ASSESSMENT/PLAN: 1. Obesity, Class III, BMI 40-49.9 (morbid obesity) (HCC) - ICD9: 278.01, ICD10: E66.01 (primary diagnosis) Weight decreasing - Rx #3 given today - 1 month follow up - PHENTERMINE 37.5 MG TABLET 2. Joint swelling - ICD9: 719.00, ICD10: M25.40 - CONSULT TO RHEUM/IMMUN DISEASE 3. Arthritis of finger of both hands - ICD9: 716.94, ICD10: M19.041, M19.042 - CONSULT TO RHEUM/IMMUN DISEASE 1 month follow up I agree with the Chief Complaint, ROS, and Past Histories independently gathered by the clinical support technician and the remaining scribed note accurately describes my personal service to the patient. Medical Decision Making: Problems: Low: Stable chronic illness Moderate: New problem with uncertain prognosis Risk: Moderate: Drug management Medical Decision Making Level: 4 - Moderate Jarvis Egan MD The documentation for this note was completed by Evelyn Jones Ma acting as scribe for Jarvis Egan MD. January 23, 2022 3:12 PM. Evelyn Jones Ma documented in this encounter [facility] 12-22-2021 History of Presen t illness Narrative Chief Complaint Patient presents with: F/U 1 month HPI Kiarra Valerio is a 66 year old female who presents here today for 1 month follow up. Obesity: Finished first month of Adipex 37.5 mg daily, losing 10 lbs. Tolerating medication well, notes some dry mouth which is new for her but not bothersome and drinking more water. Denies any issues with sleeping and does decrease her appetite. She is trying to watch her diet, not eating 3 meals per day and eating smaller portions. Has been walking most day for 30 - 45 minutes. Starting weight 249 lbs. Going to [place], next month, to watch [place]. HM - Declines Hep C screening. Declines depression. Past medical history, appointments, medications, allergies reviewed. Previous Medical History PAST MEDICAL HISTORY Diagnosis Date Allergic rhinitis, cause unspecified GERD (gastroesophageal reflux disease) Other and unspecified hyperlipidemia Other forms of migraine Previous Surgical History PAST SURGICAL HISTORY Procedure Laterality Date DELIVERY ONLY 1992 , low cervical COLONOSCOPY FLX DX W/COLLJ SPEC WHEN PFRMD 09/01/11 repeat 10 yrs AVILES W/O FACETEC FORAMOT/DSC 06/05 VRT SGM CRV 2008 Laminectomy, cervical Migraines gone LIG/TRNSXJ FLP TUBE ABDL/VAG APPR UNI/BI Tubal ligation TONSILLECTOMY PRIMARY/SECONDARY <AGE 12 Tonsillectomy Family History FAMILY HISTORY Problem Relation Age of Onset Hypertension Mother Hypertension Father Diabetes Father Allergies Mother Heart Father Colon Cancer Paternal Grandmother Coronary Artery Disease Father Patient Allergies ALLERGIES Allergen Reactions Environmental [Othe* Current Medications Current Outpatient Medications on File Prior to Visit Medication Sig Phentermine HCl 37.5 mg tablet Take 1 tablet by mouth once daily for 30 days. lisinopril (ZESTRIL, PRINIVIL) 20 mg tablet Take 1 tablet by mouth once daily. nystatin (NYSTOP) powder APPLY TO AFFECTED AREA FOUR TIMES DAILY acetaminophen 325 mg-caffeine 40 mg-butalbital 50 mg (FIORICET) per tablet one every 4 hours as needed for migraine metoprolol tartrate, short acting, (LOPRESSOR) 50 mg tablet Take 1 tablet by mouth twice daily. meloxicam (MOBIC) 15 mg tablet Take 1 tablet by mouth once daily. With food. Start after finishing Medrol Dose (Patient not taking: Reported on 05/18/2021 ) fluticasone (FLONASE) 50 mcg/actuation nasal spray Use 2 Sprays in each nostril once daily. Rinse mouth after use. multivitamin/iron/folic acid (CENTRUM WOMEN ORAL) Take by mouth. COMPOUNDED PRESCRIPTION Take 1 tablet by mouth once daily. Iron supplement Uavosag-Hjsbnuhwrfjue-Ysbdhalw (EXCEDRIN MIGRAINE) 250-250-65 mg per tablet Take 1 tablet by mouth every 6 hours as needed. No current facility-administered medications on file prior to visit. Social History Social History Tobacco Use Smoking status: Never Smoker Smokeless tobacco: Never Used Substance Use Topics Alcohol use: No Drug use: No EXAM: BP 116/74 (BP Site: Left Arm, BP Position: Sitting, BP Cuff Size: Large Adult) Pulse 82 Resp 16 Wt 108.4 kg (239 lb) BMI 42.34 kg/m General Appearance: Well appearing, alert, in no acute distress, well-hydrated, well nourished.. Lungs: Lungs clear to auscultation. No wheezing, rhonchi, rales.. Heart: RRR without murmur, gallop, or rubs. No ectopy. Health Maintenance List HEPATITIS C SCREENING Never done BP CONTROLLED (<130/80) Never done SHINGRIX VACCINE(1 of 2) Never done MAMMOGRAM due on 05/03/2016 DTAP,TDAP,TD(2 - Td or Tdap) due on 02/09/2019 BONE DENSITY Never done PNEUMOCOCCAL: 65+(1 - PCV) Never done DEPRESSION SCREENING due on 02/18/2020 COVID-19 VACCINE(3 - Booster for Pfizer series) due on 02/17/2021 ADVANCE DIRECTIVE DISCUSSION Never done COLORECTAL CANCER SCREENING due on 08/31/2021 INFLUENZA(1) due on 02/02/2022 ANNUAL PCP TEAM CHRONIC DISEASE VISIT due on 11/23/2022 DIABETES SCREEN due on 03/17/2024 LIPID SCREEN due on 03/17/2026 Data reviewed Weight graph ASSESSMENT/PLAN: 1. Obesity, Class III, BMI 40-49.9 (morbid obesity) (HCC) - ICD9: 278.01, ICD10: E66.01 Weight decreasing - Behavioral and pharmacological intervention - PHENTERMINE 37.5 MG TABLET Follow up in 1 month Medical Decision Making: Problems: Low: Stable chronic illness Risk: Moderate: Drug management Medical Decision Making Level: 3 - Low Jarvis Egan MD documented in this encounter [facility] 11-23-2021 History of Presen t illness Narrative Chief Complaint Patient presents with: Medication Follow-up HPI Kiarra Valerio is a 66 year old female who presents here today for Obesity. Her brother lives with her now and she does the cooking for them. Her mother in Apr. She has to deal with the stress of all the legal matters. She lives at her mothers house and her one brother, she has 2 brothers. Obesity: pt wants to restart Adipex. Last used over a year ago August 2020 she finished 3rd rx. Tolerated the Adipex, was able to lose weight. Weight the last month in August was 234 lbs, then she was seen in May 2021 and had gained 4 lbs. She states she has not changed her diet but has been trying to walk 30 minutes a day. She does eat fast food 1-2 x per week, does not drink pop, does drink a lot of milk, denies eating many sweets, she states for dinner she has meat and potatoes. She does get vegetables in each meal. Denies getting much fruit in diet. Her brother lives with her and she does the cooking for him and he likes meat and potatoes. Eats cereal occ and eggs a few times per week. She does try to watch portion sizes. She likes pork chops and mashed potatoes, that is her favorite so will eat more of that than she should. Would like to get down to 160 lbs at some point. HTN: Follows with Dr. Mccray with [facility]. Taking Lisinopril 20 mg daily and Lopressor 50 mg BID. Did have a 30 day holter she wore last year which did show some nonsustained v tacht. Has been feeling well, denies feeling any extra beats or palpitations lately. Migraines: controlled, no longer using Fioricet. Stable with occ OTC Excedrin migraine. Saw Fatmata Lara recently for arm numbness or possible pinched nerve. She was treated with prednisone which did help. Admits she was doing a lot of writing and on the phone which seemed to be what triggered it. Has improved. Will go to a chiropractor if it occurs agin. Past medical history, appointments, medications, allergies reviewed. Previous Medical History PAST MEDICAL HISTORY Diagnosis Date Allergic rhinitis, cause unspecified GERD (gastroesophageal reflux disease) Other and unspecified hyperlipidemia Other forms of migraine Previous Surgical History PAST SURGICAL HISTORY Procedure Laterality Date DELIVERY ONLY 1992 , low cervical COLONOSCOP W/ OR W/O [facility] 09/01/11 repeat 10 yrs LAMINECTOMY,CERVICAL 2009 Laminectomy, cervical Migraines gone LIGATE FALLOPIAN TUBE Tubal ligation REMOVAL OF TONSILS,<12 Y/O Tonsillectomy Family History FAMILY HISTORY Problem Relation Age of Onset Hypertension Mother Hypertension Father Diabetes Father Allergies Mother Heart Father Colon Cancer Paternal Grandmother Coronary Artery Disease Father Patient Allergies ALLERGIES Allergen Reactions Environmental [Othe* Current Medications Current Outpatient Medications on File Prior to Visit Medication Sig lisinopril (ZESTRIL, PRINIVIL) 20 mg tablet Take 1 tablet by mouth once daily. nystatin (NYSTOP) powder APPLY TO AFFECTED AREA FOUR TIMES DAILY acetaminophen 325 mg-caffeine 40 mg-butalbital 50 mg (FIORICET) per tablet one every 4 hours as needed for migraine metoprolol tartrate, short acting, (LOPRESSOR) 50 mg tablet Take 1 tablet by mouth twice daily. meloxicam (MOBIC) 15 mg tablet Take 1 tablet by mouth once daily. With food. Start after finishing Medrol Dose (Patient not taking: Reported on 05/18/2021 ) fluticasone (FLONASE) 50 mcg/actuation nasal spray Use 2 Sprays in each nostril once daily. Rinse mouth after use. multivitamin/iron/folic acid (CENTRUM WOMEN ORAL) Take by mouth. COMPOUNDED PRESCRIPTION Take 1 tablet by mouth once daily. Iron supplement Xtvvjjk-Icvfokkyymtdh-Isipznsw (EXCEDRIN MIGRAINE) 250-250-65 mg per tablet Take 1 tablet by mouth every 6 hours as needed. No current facility-administered medications on file prior to visit. Social History Social History Tobacco Use Smoking status: Never Smoker Smokeless tobacco: Never Used Substance Use Topics Alcohol use: No Drug use: No EXAM: BP 130/80 Pulse 82 Resp 18 Ht 160 cm (5' 3 ) Wt 113.1 kg (249 lb 6.4 oz) BMI 44.18 kg/m General Appearance: Well appearing, alert, in no acute distress, well-hydrated, well nourished. and Morbidly obese. Lungs: Lungs clear to auscultation. No wheezing, rhonchi, rales.. Heart: RRR without murmur, gallop, or rubs. No ectopy. Health Maintenance List HEPATITIS C SCREENING Never done BP CONTROLLED (<130/80) Never done SHINGRIX VACCINE(1 of 2) Never done MAMMOGRAM due on 05/03/2016 DTAP,TDAP,TD(2 - Td or Tdap) due on 02/09/2019 BONE DENSITY Never done PNEUMOCOCCAL: 65+(1 - PCV) Never done DEPRESSION SCREENING due on 02/18/2020 COVID-19 VACCINE(3 - Booster for Pfizer series) due on 02/17/2021 ADVANCE DIRECTIVE DISCUSSION Never done COLORECTAL CANCER SCREENING due on 08/31/2021 ANNUAL PCP TEAM CHRONIC DISEASE VISIT due on 05/18/2022 DIABETES SCREEN due on 03/17/2024 LIPID SCREEN due on 03/17/2026 INFLUENZA Completed Data reviewed Weight graph ASSESSMENT/PLAN: 1. Primary hypertension - ICD9: 401.9, ICD10: I10 (primary diagnosis) - good control - Continue current medication(s) - Recommended regular aerobic exercise. - Recommend home blood pressure monitoring, to bring results in on next visit - Goal of BP <130/80 Continue with Cardio 2. Obesity, Class III, BMI 40-49.9 (morbid obesity) (HCC) - ICD9: 278.01, ICD10: E66.01 Weight increasing Start Adipex; monitor for any increase in palpitations Recommend watching diet, portion sizes, cut back on fast food and milk intake, continue with exercise. Follow up in 1 month. I agree with the Chief Complaint, ROS, and Past Histories independently gathered by the clinical support technician and the remaining scribed note accurately describes my personal service to the patient. Medical Decision Making: Problems: Moderate: 2+ stable chronic illnesses Risk: Moderate: Drug management Medical Decision Making Level: 4 - Moderate Jarvis Egan MD The documentation for this note was completed by Carolina Reyes Ma acting as scribe for Jarvis Egan MD. November 23, 2021 3:14 PM. Carolina Reyes Ma documented in this encounter [facility] Diagnosis Obesity, Class III, BMI 40-49.9 (morbid obesity) (HCC) Morbid obesity [facility] Diagnosis Obesity, Class III, BMI 40-49.9 (morbid obesity) (HCC)- Primary Morbid obesity Joint swelling Effusion of joint, site unspecified Arthritis of finger of both hands [facility] Diagnosis Rheumatoid arthritis, involving unspecified site, unspecified whether rheumatoid factor present (HCC)- Primary Chronic sinusitis, unspecified location Encounter for screening mammogram for malignant neoplasm of breast Other screening mammogram Women's annual routine gynecological examination Influenza vaccine needed Need for prophylactic vaccination and inoculation against influenza [facility] Diagnosis Essential hypertension Unspecified essential hypertension documented in this encounter [facility] note* Diagnosis Rash- Primary Rash and other nonspecific skin eruption [facility] Diagnosis Medicare annual wellness visit, initial- Primary Routine general medical examination at a health care facility Encounter for screening mammogram for breast cancer Mixed hyperlipidemia Screening for colon cancer Special screening for malignant neoplasms, colon documented in this encounter [facility] note* Diagnosis Encounter for screening mammogram for malignant neoplasm of breast- Primary Other screening mammogram documented in this encounter [facility] for referral (narrative)* Diagnostic Procedure Only (Routine) - Pending Review Specialty Diagnoses / Procedures Referred By Soniya cardoza Referred To Contact [facility] Diagnoses Encounter for screening mammogram for breast cancer Procedures JUAN F SCREENING SCREENING MAMMOGRAPHY BI 2-VIEW BREAST INC Fatmata Kimbrough APRN.CNP [address] [place] [address] [facility] [address] [place] [address] Referral ID Status Reason Start Date Expiration Date Visits Requested Visits Authorized [id number] Pending Review Auto-Generat ed Referral 05/01/2024 1 1 [facility] for referral (narrative)* Diagnostic Procedure Only (Routine) - Pending Review Specialty Diagnoses / Procedures Referred By Soniya cardoza Referred To Contact [facility] Diagnoses Encounter for screening mammogram for malignant neoplasm of breast Procedures JUAN F SCREENING W MAGGIE SCREENING DIGITAL BREAST TOMOSYNTHESIS BI SCREENING MAMMOGRAPHY BI 2-VIEW BREAST INC Jarvis Leung MD [address] [place] [address] [facility] [address] [place] [address] Referral ID Status Reason Start Date Expiration Date Visits Requested Visits Authorized [id number] Pending Review Auto-Generat ed Referral 05/04/2023 06/02/2024 1 1 [facility] Reason for Referral Specialty Diagnoses / Procedures Referred By Soniya cardoza Referred To Contact Rheumatology Diagnoses Joint swelling Arthritis of finger of both hands Procedures CONSULT TO RHEUM/IMMUN DISEASE OFFICE/OUTPATIENT [facility] MDM 60-74 MINUTES Jarvis Egan MD [address] [place] [address] Referral ID Status Reason Start Date Expiration Date Visits Requested Visits Authorized [id number] Authorized PCP Requested Referral 01/23/2022 01/23/2023 1 1 Specialty Diagnoses / Procedures Referred By Contac t Referred To Contact Gynecology Diagnoses Women's annual routine gynecological examination Procedures CONSULT TO GYNECOLOGY OFFICE/OUTPATIENT [facility] MDM 60-74 MINUTES Fatmata Lara, YAS.PROBE OPERATOR [address] [place] [address] Referral ID Status Reason Start Date Expiration Date Visits Requested Visits Authorized [id number] Authorized PCP Requested Referral Auto-Generate d Referral 04/10/2022 04/10/2023 1 1 Specialty Diagnoses / Procedures Referred By Soniya t Referred To Contact [facility] Diagnoses Encounter for screening mammogram for malignant neoplasm of breast Procedures JUAN F SCREENING SCREENING MAMMOGRAPHY BI 2-VIEW BREAST INC CAD Fatmata Lara, RADIO NEWS WRITER.PROBE OPERATOR [address] [place] [address] [facility] [address] [facility] [place] [address] Referral ID Status Reason Start Date Expiration Date Visits Requested Visits Authorized [id number] Pending Review Auto-Generat ed Referral 04/10/2022 05/10/2023 1 1 Specialty Diagnoses / Procedures Referred By Soniya t Referred To Contact Dermatology Diagnoses Rash Procedures CONSULT TO DERMATOLOGY Jarvis Egan MD [address] [place] [address] Referral ID Status Reason Start Date Expiration Date Visits Requested Visits Authorized [id number] Ref Not Required PCP Requested Referral 3 03/12/2024 1 1 Summary Purpose Family History No Family History Records Found Advance Directives No Advanced Directives Records Found Additional Source Comments Source Comments (unrecognize d section and content) In the event this informatio n is protected by the Federal Confidentiality of Alcohol and Drug Abuse Patient Records regulations: The Federal rules restrict any use of the information to criminally investigate or prosecute any alcohol or drug abuse patient.[facility] the event this information is protected by the Federal Confidentiality of Alcohol and Drug Abuse Patient Records regulations: The Federal rules restrict any use of the information to criminally investigate or prosecute any alcohol or drug abuse patient.[facility] the event this information is protected by the Federal Confidentiality of Alcohol and Drug Abuse Patient Records regulations: The Federal rules restrict any use of the information to criminally investigate or prosecute any alcohol or drug abuse patient.[facility] the event this information is protected by the Federal Confidentiality of Alcohol and Drug Abuse Patient Records regulations: The Federal rules restrict any use of the information to criminally investigate or prosecute any alcohol or drug abuse patient.[facility] the event this information is protected by the Federal Confidentiality of Alcohol and Drug Abuse Patient Records regulations: The Federal rules restrict any use of the information to criminally investigate or prosecute any alcohol or drug abuse patient.[facility] the event this information is protected by the Federal Confidentiality of Alcohol and Drug Abuse Patient Records regulations: The Federal rules restrict any use of the information to criminally investigate or prosecute any alcohol or drug abuse patient.[facility] the event this information is protected by the Federal Confidentiality of Alcohol and Drug Abuse Patient Records regulations: The Federal rules restrict any use of the information to criminally investigate or prosecute any alcohol or drug abuse patient.[facility] the event this information is protected by the Federal Confidentiality of Alcohol and Drug Abuse Patient Records regulations: The Federal rules restrict any use of the information to criminally investigate or prosecute any alcohol or drug abuse patient.[facility] the event this information is protected by the Federal Confidentiality of Alcohol and Drug Abuse Patient Records regulations: The Federal rules restrict any use of the information to criminally investigate or prosecute any alcohol or drug abuse patient.[facility] the event this information is protected by the Federal Confidentiality of Alcohol and Drug Abuse Patient Records regulations: The Federal rules restrict any use of the information to criminally investigate or prosecute any alcohol or drug abuse patient.[facility] the event this information is protected by the Federal Confidentiality of Alcohol and Drug Abuse Patient Records regulations: The Federal rules restrict any use of the information to criminally investigate or prosecute any alcohol or drug abuse patient.[facility] the event this information is protected by the Federal Confidentiality of Alcohol and Drug Abuse Patient Records regulations: The Federal rules restrict any use of the information to criminally investigate or prosecute any alcohol or drug abuse patient.[facility] the event this information is protected by the Federal Confidentiality of Alcohol and Drug Abuse Patient Records regulations: The Federal rules restrict any use of the information to criminally investigate or prosecute any alcohol or drug abuse patient.[facility] the event this information is protected by the Federal Confidentiality of Alcohol and Drug Abuse Patient Records regulations: The Federal rules restrict any use of the information to criminally investigate or prosecute any alcohol or drug abuse patient.[facility] Reason for Visit (unrecogniz ed section and content) Reason Comments F/U 1 month Reason Comments F/U 1 month Reason Comments Follow Up 1 month for weight Reason Onset Date Comments Refill Request 05/12/2022 Reason Onset Date Comments Population Health Navigation Outreach 08/23/2022 [facility] Reason Onset Date Comments Population Health Navigation Outreach 03/07/2023 [facility] BP AND DM Reason Comments Referral Request Reason Comments Medicare Wellness Exam Reason Onset Date Comments Population Health Navigation Outreach 04/03/2023 [facility] CARE GAP Reason Comments Orders Reason Comments Orders Reason Comments Possible hemorrhoid Care Teams (unrecognized sec tion and content) Printing Press Machine Operator Relationship Specialty Start Date End Date Jarvis Egan MD [address] [place], [place] [id number] PCP - General Family Practice 06/14/10 Printing Press Machine Operator Relationship Specialty Start Date End Date Jarvis Egan MD [address] [place] [address] PCP - General Family Practice 06/14/10 Printing Press Machine Operator Relationship Specialty Start Date End Date Jarvis Egan MD [address] [place] [address] PCP - General Family Medicine 06/14/10 Printing Press Machine Operator Relationship Specialty Start Date End Date Jarvis Egan MD [address] [place] [address] PCP - General Family Medicine 06/14/10 Printing Press Machine Operator Relationship Specialty Start Date End Date Jarvis Egan MD [address] [place] [address] PCP - General Family Medicine 06/14/10 Printing Press Machine Operator Relationship Specialty Start Date End Date Jarvis Egan MD [address] [place] [address] PCP - General Family Medicine 06/14/10 Printing Press Machine Operator Relationship Specialty Start Date End Date Jarvis Egan MD [address] [place] [address] PCP - General Family Medicine 06/14/10 Printing Press Machine Operator Relationship Specialty Start Date End Date Jarvis Egan MD [address] [place] [address] PCP - General Family Medicine 06/14/10 Printing Press Machine Operator Relationship Specialty Start Date End Date Jarvis Egan MD [address] [place] [address] PCP - General Family Medicine 06/14/10 Printing Press Machine Operator Relationship Specialty Start Date End Date Jarvis Egan MD [address] [place] [address] PCP - General Family Medicine 06/14/10 Printing Press Machine Operator Relationship Specialty Start Date End Date Jarvis Egan MD [address] [place], [place] [address] PCP - General Family Medicine 06/14/10 Printing Press Machine Operator Relationship Specialty Start Date End Date Jarvis Egan MD [address] [place], [place] [address] PCP - General Family Medicine 06/14/10 INFORMATION SOURCE (unrecogn ized section and content) FOR RECORDS PERTAINING TO PATIENTS WHO ARE OR HAVE BEEN ENROLLED IN A CHEMICAL DEPENDENCY/SUBSTANCEABUSE PROGRAM, SOME INFORMATION MAY BE OMITTED. This clinical summary was aggregated from multiple sources. Caution should be exercised in using it in the provision of clinical care. This summary normalizes information from multiple sources, and as a consequence, information in this document may materially change the coding, format and clinical context of patient data. In addition, data may be omitted in some cases. CLINICAL DECISIONS SHOULD BE BASED ON THE PRIMARY CLINICAL RECORDS. [employer] provides no warranty or guarantee of the accuracy or completeness of information in this document.
[2023-06-11 12:32] LABS: Absolute Lymphocyte Count 1.44 X10^3/uL (0.83-4.51); Absolute Neutrophil Count 6.9 X10^3/uL (2.0-7.7); Basophil# 0.03 X10^3/uL; Basophil% 0.3 % (0-1); Eosinophil# 0.16 X10^3/uL; Eosinophils% 1.7 % (0-5); Hematocrit 38.2 % (37-47); Hemoglobin 12.1 g/dL (12.0-15.0); Lymphocyte # 1.44 X10^3/ul (0.83-4.51); Mean Corp Hgb Conc 31.7 g/dL (32-36); Mean Corpuscular Hgb 32.4 pg (27.0-32.0); Mean Corpuscular Volume 102.4 fL (81-99); Mean Platelet Vol. 9.3 fl (6.2-12.0); Monocyte% 10.4 % (0-10); NRBC Flagged by Analyzer 0 % (0-5); Neutrophil # 6.94 X10^3/uL (2.7-7.7); Neutrophil % 72.2 % (47-70); Platelet Count 366 K/mm3 (150-450); RBC Distribution Width CV 15.5 % (11.6-14.6); RBC Distribution Width SD 57.3 fl (35.1-43.9); Red Blood Count 3.73 M/mm3 (4.2-5.4); White Blood Count 9.6 K/mm3 (4.4-11.0)
[2023-06-11 13:32] LABS: ALB/GLOB Ratio 0.8 RATIO (0.9-2.4); AST(SGOT) 18 U/L (15-37); Alanine Aminotransfer ALT/SGPT 33 U/L (13-56); Albumin, Serum 3.4 g/dL (3.2-5.0); Alkaline Phosphatase 94 U/L (45-117); Anion Gap 6 (5-15); BUN 24 mg/dL (7-18); Calcium,Total 9.4 mg/dL (8.5-10.1); Chloride 109 mmol/L (98-107); EST Glomerular Filtration Rate 76 mL/min (>60); Est Glom Filt Rate - Afr Amer 91 mL/min (>60); Globulin 4.2 g/dL (2.2-4.2); Glucose 111 mg/dL (74-106); Potassium 4.4 mmol/L (3.5-5.1); Protein, Total 7.6 g/dL (6.4-8.2); Sodium Level 141 mmol/L (136-145)
== END | disposition home or self-care (01) ==
LOC: MTLAB 10:15
PROVIDERS: PCP Family Medicine; Referring Provider Internal Medicine Rheumatology; Visit Provider Internal Medicine Rheumatology
DX: M05.79 Rheumatoid arthritis with rheumatoid factor of multiple sites without organ or systems involvement (principal); Z79.899 Other long term (current) drug therapy
CPT/HCPCS: 36415; 80053; 85025

== ENCOUNTER → 2023-09-19 | Outpatient (CLI) | payer MEDICARE, OTHER, SELFPAY ==
[2023-09-19 12:23] LABS: Absolute Lymphocyte Count 1.37 X10^3/uL (0.83-4.51); Absolute Neutrophil Count 8.4 X10^3/uL (2.0-7.7); Basophil# 0.03 X10^3/uL; Basophil% 0.3 % (0-1); Hematocrit 38.9 % (37-47); Hemoglobin 12.5 g/dL (12.0-15.0); Lymphocyte # 1.37 X10^3/ul (0.83-4.51); Mean Corp Hgb Conc 32.1 g/dL (32-36); Mean Corpuscular Hgb 32.3 pg (27.0-32.0); Mean Corpuscular Volume 100.5 fL (81-99); Mean Platelet Vol. 9.1 fl (6.2-12.0); Monocyte# 0.61 X10^3/uL; Monocyte% 5.8 % (0-10); NRBC Flagged by Analyzer 0 % (0-5); Neutrophil # 8.35 X10^3/uL (2.7-7.7); Neutrophil % 79.5 % (47-70); Platelet Count 380 K/mm3 (150-450); RBC Distribution Width CV 14.6 % (11.6-14.6); RBC Distribution Width SD 53.3 fl (35.1-43.9); Red Blood Count 3.87 M/mm3 (4.2-5.4); White Blood Count 10.5 K/mm3 (4.4-11.0)
[2023-09-19 13:19] LABS: ALB/GLOB Ratio 0.8 RATIO (0.9-2.4); AST(SGOT) 14 U/L (15-37); Alanine Aminotransfer ALT/SGPT 32 U/L (13-56); Albumin, Serum 3.4 g/dL (3.2-5.0); Alkaline Phosphatase 81 U/L (45-117); Anion Gap 6 (5-15); BUN 18 mg/dL (7-18); BUN/Creat Ratio 23.2 RATIO (10-20); Calcium,Total 9.7 mg/dL (8.5-10.1); Chloride 107 mmol/L (98-107); Creatinine, Serum 0.78 mg/dL (0.55-1.02); EST Glomerular Filtration Rate 78 mL/min (>60); Est Glom Filt Rate - Afr Amer 95 mL/min (>60); Globulin 4.1 g/dL (2.2-4.2); Glucose 96 mg/dL (74-106); Potassium 4.3 mmol/L (3.5-5.1); Protein, Total 7.5 g/dL (6.4-8.2); Sodium Level 138 mmol/L (136-145)
== END | disposition home or self-care (01) ==
PROVIDERS: PCP Family Medicine; Referring Provider Internal Medicine Rheumatology; Visit Provider Internal Medicine Rheumatology
DX: M05.79 Rheumatoid arthritis with rheumatoid factor of multiple sites without organ or systems involvement (principal); M47.892 Other spondylosis, cervical region; Z79.899 Other long term (current) drug therapy
CPT/HCPCS: 36415; 80053; 85025

== ENCOUNTER → 2023-12-03 | Outpatient (CLI) | payer MEDICARE, OTHER, SELFPAY ==
[2023-12-03 17:50] LABS: Absolute Lymphocyte Count 0.96 X10^3/uL (0.83-4.51); Absolute Neutrophil Count 7.3 X10^3/uL (2.0-7.7); Basophil# 0.02 X10^3/uL; Basophil% 0.2 % (0-1); Eosinophil# 0.08 X10^3/uL; Eosinophils% 0.9 % (0-5); Hematocrit 39.9 % (37-47); Hemoglobin 12.7 g/dL (12.0-15.0); Lymphocyte # 0.96 X10^3/ul (0.83-4.51); Lymphocyte % 10.7 % (19-41); Mean Corp Hgb Conc 31.8 g/dL (32-36); Mean Corpuscular Hgb 31.4 pg (27.0-32.0); Mean Corpuscular Volume 98.5 fL (81-99); Mean Platelet Vol. 9.1 fl (6.2-12.0); Monocyte# 0.54 X10^3/uL; NRBC Flagged by Analyzer 0 % (0-5); Neutrophil # 7.34 X10^3/uL (2.7-7.7); Neutrophil % 81.9 % (47-70); Platelet Count 344 K/mm3 (150-450); RBC Distribution Width CV 16.2 % (11.6-14.6); RBC Distribution Width SD 57.1 fl (35.1-43.9); Red Blood Count 4.05 M/mm3 (4.2-5.4)
[2023-12-03 18:28] LABS: AST(SGOT) 14 U/L (15-37); Alanine Aminotransfer ALT/SGPT 30 U/L (13-56); Albumin, Serum 3.8 g/dL (3.2-5.0); Alkaline Phosphatase 93 U/L (45-117); Anion Gap 6 (5-15); BUN 25 mg/dL (7-18); BUN/Creat Ratio 27.2 RATIO (10-20); Calcium,Total 10.2 mg/dL (8.5-10.1); Chloride 106 mmol/L (98-107); Creatinine, Serum 0.92 mg/dL (0.55-1.02); EST Glomerular Filtration Rate 64 mL/min (>60); Est Glom Filt Rate - Afr Amer 78 mL/min (>60); Glucose 119 mg/dL (74-106); Potassium 4.7 mmol/L (3.5-5.1); Protein, Total 7.8 g/dL (6.4-8.2); Sodium Level 136 mmol/L (136-145)
== END | disposition home or self-care (01) ==
PROVIDERS: PCP Family Medicine; Referring Provider Internal Medicine Rheumatology; Visit Provider Internal Medicine Rheumatology
DX: M05.79 Rheumatoid arthritis with rheumatoid factor of multiple sites without organ or systems involvement (principal); Z79.899 Other long term (current) drug therapy
CPT/HCPCS: 36415; 80053; 85025

== ENCOUNTER → 2024-02-26 | Outpatient (CLI) | payer MEDICARE, OTHER, SELFPAY ==
[2024-02-26 15:24] LABS: Absolute Lymphocyte Count 1.56 X10^3/uL (0.83-4.51); Absolute Neutrophil Count 4.6 X10^3/uL (2.0-7.7); Basophil# 0.04 X10^3/uL; Basophil% 0.5 % (0-1); Eosinophils% 2.7 % (0-5); Hematocrit 39.5 % (37-47); Hemoglobin 12.3 g/dL (12.0-15.0); Lymphocyte # 1.56 X10^3/ul (0.83-4.51); Lymphocyte % 21.1 % (19-41); Mean Corp Hgb Conc 31.1 g/dL (32-36); Mean Corpuscular Hgb 31.1 pg (27.0-32.0); Mean Corpuscular Volume 99.7 fL (81-99); Monocyte# 0.93 X10^3/uL; Monocyte% 12.6 % (0-10); NRBC Flagged by Analyzer 0 % (0-5); Neutrophil # 4.62 X10^3/uL (2.7-7.7); Neutrophil % 62.3 % (47-70); Platelet Count 321 K/mm3 (150-450); RBC Distribution Width CV 15.6 % (11.6-14.6); RBC Distribution Width SD 56.4 fl (35.1-43.9); Red Blood Count 3.96 M/mm3 (4.2-5.4); White Blood Count 7.4 K/mm3 (4.4-11.0)
[2024-02-26 15:38] LABS: ALB/GLOB Ratio 0.9 RATIO (0.9-2.4); AST(SGOT) 15 U/L (15-37); Alanine Aminotransfer ALT/SGPT 25 U/L (13-56); Albumin, Serum 3.4 g/dL (3.2-5.0); Alkaline Phosphatase 91 U/L (45-117); Anion Gap 5 (5-15); BUN 25 mg/dL (7-18); BUN/Creat Ratio 30.8 RATIO (10-20); Calcium,Total 9.8 mg/dL (8.5-10.1); Chloride 108 mmol/L (98-107); Creatinine, Serum 0.81 mg/dL (0.55-1.02); EST Glomerular Filtration Rate 74 mL/min (>60); Est Glom Filt Rate - Afr Amer 90 mL/min (>60); Globulin 3.8 g/dL (2.2-4.2); Glucose 103 mg/dL (74-106); Potassium 4.5 mmol/L (3.5-5.1); Protein, Total 7.2 g/dL (6.4-8.2); Sodium Level 139 mmol/L (136-145)
== END | disposition home or self-care (01) ==
LOC: MTLAB 13:07
PROVIDERS: PCP Family Medicine; Referring Provider Internal Medicine Rheumatology; Visit Provider Internal Medicine Rheumatology
DX: M05.79 Rheumatoid arthritis with rheumatoid factor of multiple sites without organ or systems involvement (principal); Z79.899 Other long term (current) drug therapy
CPT/HCPCS: 36415; 80053; 85025

== ENCOUNTER → 2024-06-03 | Outpatient (CLI) | payer MEDICARE, OTHER, SELFPAY ==
[2024-06-03 16:55] LABS: Absolute Lymphocyte Count 1.66 X10^3/uL (0.83-4.51); Absolute Neutrophil Count 5.4 X10^3/uL (2.0-7.7); Basophil# 0.04 X10^3/uL; Basophil% 0.5 % (0-1); Eosinophil# 0.13 X10^3/uL; Eosinophils% 1.6 % (0-5); Hematocrit 38.7 % (37-47); Hemoglobin 12.4 g/dL (12.0-15.0); Lymphocyte # 1.66 X10^3/ul (0.83-4.51); Lymphocyte % 20.2 % (19-41); Mean Corpuscular Hgb 31.8 pg (27.0-32.0); Mean Corpuscular Volume 99.2 fL (81-99); Mean Platelet Vol. 9.6 fl (6.2-12.0); Monocyte% 12.2 % (0-10); NRBC Flagged by Analyzer 0 % (0-5); Neutrophil # 5.35 X10^3/uL (2.7-7.7); Platelet Count 297 K/mm3 (150-450); RBC Distribution Width CV 14.6 % (11.6-14.6); RBC Distribution Width SD 53.1 fl (35.1-43.9); White Blood Count 8.2 K/mm3 (4.4-11.0)
[2024-06-03 17:14] LABS: AST(SGOT) 15 U/L (15-37); Alanine Aminotransfer ALT/SGPT 32 U/L (13-56); Albumin, Serum 3.6 g/dL (3.2-5.0); Alkaline Phosphatase 100 U/L (45-117); Anion Gap 4 (5-15); BUN 18 mg/dL (7-18); BUN/Creat Ratio 28.8 RATIO (10-20); Calcium,Total 9.6 mg/dL (8.5-10.1); Chloride 107 mmol/L (98-107); Creatinine, Serum 0.62 mg/dL (0.55-1.02); EST Glomerular Filtration Rate 101 mL/min (>60); Est Glom Filt Rate - Afr Amer 122 mL/min (>60); Globulin 3.6 g/dL (2.2-4.2); Glucose 84 mg/dL (74-106); Potassium 4.3 mmol/L (3.5-5.1); Protein, Total 7.2 g/dL (6.4-8.2); Sodium Level 140 mmol/L (136-145)
== END | disposition home or self-care (01) ==
LOC: MTLAB 14:22
PROVIDERS: PCP Family Medicine; Referring Provider Internal Medicine Rheumatology; Visit Provider Internal Medicine Rheumatology
DX: M05.79 Rheumatoid arthritis with rheumatoid factor of multiple sites without organ or systems involvement (principal); Z79.899 Other long term (current) drug therapy
CPT/HCPCS: 36415; 80053; 85025

== ENCOUNTER → 2024-08-26 | Outpatient (CLI) | payer MEDICARE, OTHER, SELFPAY ==
[2024-08-26 17:47] LABS: Absolute Lymphocyte Count 1.56 X10^3/uL (0.83-4.51); Absolute Neutrophil Count 3.4 X10^3/uL (2.0-7.7); Basophil# 0.03 X10^3/uL; Basophil% 0.5 % (0-1); Eosinophil# 0.21 X10^3/uL; Eosinophils% 3.5 % (0-5); Hematocrit 39.2 % (37-47); Hemoglobin 12.4 g/dL (12.0-15.0); Lymphocyte # 1.56 X10^3/ul (0.83-4.51); Mean Corp Hgb Conc 31.6 g/dL (32-36); Mean Corpuscular Hgb 31.2 pg (27.0-32.0); Mean Corpuscular Volume 98.7 fL (81-99); Mean Platelet Vol. 9.4 fl (6.2-12.0); Monocyte# 0.81 X10^3/uL; Monocyte% 13.5 % (0-10); NRBC Flagged by Analyzer 0 % (0-5); Neutrophil # 3.38 X10^3/uL (2.7-7.7); Neutrophil % 56.2 % (47-70); Platelet Count 334 K/mm3 (150-450); RBC Distribution Width CV 14.9 % (11.6-14.6); Red Blood Count 3.97 M/mm3 (4.2-5.4)
[2024-08-26 20:19] LABS: ALB/GLOB Ratio 1.4 RATIO (0.9-2.4); AST(SGOT) 19 U/L (<=31); Alanine Aminotransfer ALT/SGPT 21 U/L (<=34); Albumin, Serum 4.1 g/dL (3.4-4.8); Alkaline Phosphatase 97 U/L (35-104); Anion Gap 9 (5-15); BUN 22 mg/dL (4-19); BUN/Creat Ratio 35.8 RATIO (10-20); Calcium,Total 10.1 mg/dL (7.6-11.0); Carbon Dioxide 25.7 mmol/L (21.0-32.0); Chloride 108 mmol/L (98-108); Creatinine, Serum 0.61 mg/dL (0.70-1.20); EST Glomerular Filtration Rate 97 (>60); Glucose 105 mg/dL (70-99); Potassium 4.3 mmol/L (3.3-5.1); Protein, Total 7.1 g/dL (5.9-8.4); Sodium Level 143 mmol/L (133-145); Total Bilirubin < 0.15 mg/dL (0.00-1.30)
== END | disposition home or self-care (01) ==
LOC: MTLAB 14:49
PROVIDERS: PCP Family Medicine; Referring Provider Internal Medicine Rheumatology; Visit Provider Internal Medicine Rheumatology
DX: M05.70 Rheumatoid arthritis with rheumatoid factor of unspecified site without organ or systems involvement (principal); Z79.899 Other long term (current) drug therapy
CPT/HCPCS: 36415; 80053; 85025

== ENCOUNTER → 2024-11-28 | Outpatient (CLI) | payer MEDICARE, OTHER, SELFPAY ==
[2024-11-28 12:45] LABS: Absolute Lymphocyte Count 1.01 X10^3/uL (0.83-4.51); Basophil# 0.02 X10^3/uL; Basophil% 0.4 % (0-1); Eosinophil# 0.11 X10^3/uL; Hematocrit 38.7 % (37-47); Hemoglobin 12.5 g/dL (12.0-15.0); Lymphocyte # 1.01 X10^3/ul (0.83-4.51); Lymphocyte % 18.1 % (19-41); Mean Corp Hgb Conc 32.3 g/dL (32-36); Mean Corpuscular Hgb 31.3 pg (27.0-32.0); Mean Corpuscular Volume 96.8 fL (81-99); Mean Platelet Vol. 9.6 fl (6.2-12.0); Monocyte# 0.38 X10^3/uL; Monocyte% 6.8 % (0-10); NRBC Flagged by Analyzer 0 % (0-5); Neutrophil # 4.03 X10^3/uL (2.7-7.7); Neutrophil % 72.2 % (47-70); Platelet Count 271 K/mm3 (150-450); RBC Distribution Width CV 14.3 % (11.6-14.6); RBC Distribution Width SD 50.6 fl (35.1-43.9); White Blood Count 5.6 K/mm3 (4.4-11.0)
[2024-11-28 13:12] LABS: ALB/GLOB Ratio 1.4 RATIO (0.9-2.4); AST(SGOT) 16 U/L (<=31); Alanine Aminotransfer ALT/SGPT 18 U/L (<=34); Alkaline Phosphatase 76 U/L (35-104); Anion Gap 12 (5-15); BUN 21 mg/dL (4-19); BUN/Creat Ratio 33.8 RATIO (10-20); Calcium,Total 9.7 mg/dL (7.6-11.0); Chloride 108 mmol/L (98-108); Creatinine, Serum 0.61 mg/dL (0.70-1.20); EST Glomerular Filtration Rate 96 (>60); Glucose 121 mg/dL (70-99); Potassium 4.3 mmol/L (3.3-5.1); Sodium Level 140 mmol/L (133-145)
== END | disposition home or self-care (01) ==
LOC: MTLAB 09:36
PROVIDERS: PCP Family Medicine; Referring Provider Internal Medicine Rheumatology; Visit Provider Internal Medicine Rheumatology
DX: M05.70 Rheumatoid arthritis with rheumatoid factor of unspecified site without organ or systems involvement (principal); M47.892 Other spondylosis, cervical region; Z79.899 Other long term (current) drug therapy
CPT/HCPCS: 36415; 80053; 85025

== ENCOUNTER → 2024-12-02 | Outpatient (CLI) | payer MEDICARE, OTHER, SELFPAY ==
[2024-12-04 10:08] LABS: Red Blood Cell Count Test/G6PD 4.04 x10E6/uL (3.77-5.28)
== END | disposition home or self-care (01) ==
LOC: MTLAB 08:07
PROVIDERS: PCP Family Medicine; Referring Provider Internal Medicine Rheumatology; Visit Provider Internal Medicine Rheumatology
DX: M05.70 Rheumatoid arthritis with rheumatoid factor of unspecified site without organ or systems involvement (principal); Z79.899 Other long term (current) drug therapy
CPT/HCPCS: 36415; 82955

== ENCOUNTER → 2025-01-21 | Outpatient (CLI) | payer MEDICARE, OTHER, SELFPAY ==
[2025-01-21 18:22] LABS: AST(SGOT) 21 U/L (<=31); Alanine Aminotransfer ALT/SGPT 25 U/L (<=34); Albumin, Serum 4.1 g/dL (3.4-4.8); Alkaline Phosphatase 79 U/L (35-104); Anion Gap 13 (5-15); BUN 21 mg/dL (4-19); BUN/Creat Ratio 32.8 RATIO (10-20); Calcium,Total 9.6 mg/dL (7.6-11.0); Carbon Dioxide 21.9 mmol/L (21.0-32.0); Chloride 104 mmol/L (98-108); Globulin 2.8 g/dL (2.2-4.2); Glucose 82 mg/dL (70-99); Potassium 4.5 mmol/L (3.3-5.1)
[2025-01-21 18:57] LABS: Hematocrit 39.4 % (37-47); Hemoglobin 13.1 g/dL (12.0-15.0); Immature Granulocytes Count 0.030 X10^3/uL (0.0-0.0); Mean Corp Hgb Conc 33.2 g/dL (32-36); Mean Corpuscular Volume 98.0 fL (81-99); Mean Platelet Vol. 9.6 fl (6.2-12.0); NRBC Flagged by Analyzer 0 % (0-5); Platelet Count 310 K/mm3 (150-450); RBC Distribution Width CV 15.0 % (11.6-14.6); RBC Distribution Width SD 54.1 fl (35.1-43.9); Red Blood Count 4.02 M/mm3 (4.2-5.4); White Blood Count 6.5 K/mm3 (4.4-11.0)
== END | disposition home or self-care (01) ==
LOC: MTLAB 14:32
PROVIDERS: PCP Family Medicine; Referring Provider Internal Medicine Rheumatology; Visit Provider Internal Medicine Rheumatology
DX: M05.70 Rheumatoid arthritis with rheumatoid factor of unspecified site without organ or systems involvement (principal); Z79.899 Other long term (current) drug therapy
CPT/HCPCS: 36415; 80053; 85025

== ENCOUNTER → 2025-02-18 | Outpatient (CLI) | payer MEDICARE, OTHER, SELFPAY ==
--- NOTE | 2025-02-18 12:13 | BI_ITS ---
EXAM: SCRN MAMM (CAD)W/MAGGIE BILAT DATE: 02/18/2025 CLINICAL HISTORY: F, Age 69 y/o , SCREENING No family history. TECHNIQUE: Procedure Code: [id number] Modality: MG Procedure: SCRN MAMM (CAD)W/MAGGIE BILAT COMPARISON: Prior exam(s) dated May 17, 2023.. FINDINGS: TISSUE DENSITY: The breasts are almost entirely fatty. Bilateral Breast Mammographic Findings: No significant masses, calcifications or other abnormalities are identified. Stable scattered calcifications in the right breast. No focal cluster is seen. No suspicious masses, areas of developing architectural distortion, or suspicious calcifications. There has been no significant interval change. BI/SCRN MAMM (CAD)W/MAGGIE BILAT IMPRESSION: Stable bilateral screening mammogram. OVERALL FINAL ASSESSMENT BI-RADS 2: BENIGN RECOMMENDATION: Routine annual follow-up in 1 Year A letter with findings and recommendations will be mailed to the patient. Reading Location: [place] [address]
== END | disposition home or self-care (01) ==
LOC: OPBI 12:11
PROVIDERS: PCP Family Medicine; Referring Provider Family Medicine; Visit Provider Family Medicine
DX: Z12.31 Encounter for screening mammogram for malignant neoplasm of breast (principal)
CPT/HCPCS: 77063; 77067

== ENCOUNTER → 2025-04-23 | Outpatient (CLI) | payer MEDICARE, OTHER, SELFPAY ==
[2025-04-23 14:52] LABS: Hematocrit 39.8 % (37-47); Hemoglobin 13.0 g/dL (12.0-15.0); Immature Granulocytes Count 0.020 X10^3/uL (0.0-0.0); Mean Corp Hgb Conc 32.7 g/dL (32-36); Mean Corpuscular Volume 98.5 fL (81-99); Mean Platelet Vol. 9.6 fl (6.2-12.0); NRBC Flagged by Analyzer 0 % (0-5); Platelet Count 301 K/mm3 (150-450); RBC Distribution Width CV 13.9 % (11.6-14.6); RBC Distribution Width SD 50.3 fl (35.1-43.9); Red Blood Count 4.04 M/mm3 (4.2-5.4); White Blood Count 7.0 K/mm3 (4.4-11.0)
[2025-04-23 15:17] LABS: AST(SGOT) 23 U/L (<=31); Alanine Aminotransfer ALT/SGPT 21 U/L (<=34); Albumin, Serum 4.2 g/dL (3.4-4.8); Alkaline Phosphatase 102 U/L (35-104); Anion Gap 12 (5-15); BUN 23 mg/dL (4-19); BUN/Creat Ratio 30.8 RATIO (10-20); Calcium,Total 10.0 mg/dL (7.6-11.0); Carbon Dioxide 22.9 mmol/L (21.0-32.0); Chloride 104 mmol/L (98-108); Globulin 3.2 g/dL (2.2-4.2); Glucose 90 mg/dL (70-99); Potassium 5.0 mmol/L (3.3-5.1)
== END | disposition home or self-care (01) ==
LOC: MTLAB 13:06
PROVIDERS: PCP Family Medicine; Referring Provider Internal Medicine Rheumatology; Visit Provider Internal Medicine Rheumatology
DX: M05.712 Rheumatoid arthritis with rheumatoid factor of left shoulder without organ or systems involvement (principal); Z79.899 Other long term (current) drug therapy
CPT/HCPCS: 36415; 80053; 85025